=== PATIENT | female | born 1955 | race Hispanic/Latino ===

== ENCOUNTER 2021-10-10 09:37 | Emergency (ER) | payer MEDICAID ==
[~2021-10-10] VITALS: Ht 162.6 cm; Wt 72.6 kg
[~2021-10-10 09:37] MED LIST: AMLO-257 PO
[2021-10-10 10:00] LABS: BASOPHILS % (AUTO) 0.4 % (0.0-5.0); EOSINOPHILS % (AUTO) 1.3 % (0.0-8.0); HEMATOCRIT 41.2 % (36-48); LYMPHOCYTES % (AUTO) 21.4 % (21.0-51.0); MEAN CORPUSCULAR HEMOGLOBIN 29.8 pg (27.0-33.0); MEAN CORPUSCULAR VOLUME 90.4 fL (79-99); MONOCYTES % (AUTO) 10.4 % (3.0-13.0); NEUTROPHILS % (AUTO) 66.3 % (40.0-77.0); PLATELET COUNT (AUTO) 120 K/uL (130-400); RED BLOOD CELL COUNT(AUTO) 4.56 MIL/uL (4.00-5.50); RED CELL DISTRIBUTION WIDTH 13.9 % (11.0-15.5); WHITE BLOOD COUNT (AUTO) 5.4 K/uL (4.8-10.8)
[2021-10-10] MEDS ORDERED: ASPIRIN 81MG CHEW TAB ONE (10:14)
[2021-10-10] MEDS ORDERED: NITROGLYCERIN 1GM OINT 1 INCH/1GM TD ONE (10:15)
[2021-10-10 10:21] LABS: CREATININE 0.5 mg/dL (0.5-1.5); POTASSIUM 3.8 mmol/L (3.5-5.1)
[2021-10-10 10:26] LABS: ALBUMIN 3.3 g/dL (3.5-5.0); BILIRUBIN,TOTAL 0.5 mg/dL (0.2-1.0)
[2021-10-10 10:48] LABS: APPEARANCE,URINE Clear (CLEAR); BILIRUBIN,URINE Negative (NEGATIVE); COLOR,URINE Yellow (YELLOW); GLUCOSE, URINE (UA) >=1000 mg/dL (NEGATIVE); KETONES,URINE Negative (NEGATIVE); LEUKOCYTE ESTERASE ,URINE Negative (NEGATIVE); NITRATE,URINE Negative (NEGATIVE); OCCULT BLOOD,URINE Negative (NEGATIVE); PH,URINE 5.5 (5.0-8.0); PROTEIN,URINE POS 2+ mg/dL (NEGATIVE)
[2021-10-10 11:28] LABS: BACTERIA,URINE Rare /HPF (None Seen); RBC,URINE 0-1 /HPF (0-1); SQUAMOUS EPITHELIAL CELL,UR Rare /HPF (0-2)
[2021-10-10 12:22] VITALS: BP 138/73
== END 2021-10-10 12:39 | disposition left against medical advice (07) ==
LOC: EDH 09:37
DX: I20.0 Unstable angina (principal); R07.89 Other chest pain; Z20.822 Contact with and (suspected) exposure to COVID-19; I11.9 Hypertensive heart disease without heart failure; E11.9 Type 2 diabetes mellitus without complications; Z79.82 Long term (current) use of aspirin; Z90.49 Acquired absence of other specified parts of digestive tract
CPT/HCPCS: 36415; 71045; 80053; 81001; 83880; 84484; 85025; 87635; 87804 ×2; 93005; 99285; C9803

== ENCOUNTER 2022-06-15 07:22 | Emergency (ER) | payer MEDICAID ==
[~2022-06-15] VITALS: Ht 165.1 cm; Wt 77.1 kg
[2022-06-15] MEDS ORDERED: NAPROXEN 250 MG TAB ONE (07:47)
[2022-06-15 07:56] VITALS: BP 176/75
[2022-06-15] MEDS ORDERED: NAPROXEN 500 MG TABLET PO ONE (08:00)
[2022-06-15] MEDS ORDERED: LACTATED RINGERS 1000ML 1,000 ML IV ONE (08:00)
[2022-06-15 08:01] LABS: BASOPHILS % (AUTO) 0.4 % (0.0-5.0); EOSINOPHILS % (AUTO) 1.7 % (0.0-8.0); HEMATOCRIT 38.3 % (36-48); LYMPHOCYTES % (AUTO) 28.4 % (21.0-51.0); MEAN CORPUSCULAR HEMOGLOBIN 27.9 pg (27.0-33.0); MEAN CORPUSCULAR HGB CONC 32.6 g/dL (32.0-36.0); MEAN CORPUSCULAR VOLUME 85.5 fL (79-99); MONOCYTES % (AUTO) 8.9 % (3.0-13.0); NEUTROPHILS % (AUTO) 60.4 % (40.0-77.0); PLATELET COUNT (AUTO) 114 K/uL (130-400); RED BLOOD CELL COUNT(AUTO) 4.48 MIL/uL (4.00-5.50); RED CELL DISTRIBUTION WIDTH 14.6 % (11.0-15.5); WHITE BLOOD COUNT (AUTO) 5.4 K/uL (4.8-10.8)
[2022-06-15 08:08] LABS: APPEARANCE,URINE CLOUDY (CLEAR); BILIRUBIN,URINE NEGATIVE (NEGATIVE); COLOR,URINE YELLOW (YELLOW); GLUCOSE, URINE (UA) 500 mg/dL (NEGATIVE); KETONES,URINE NEGATIVE (NEGATIVE); LEUKOCYTE ESTERASE ,URINE 75 Leu/uL (NEGATIVE); NITRATE,URINE NEGATIVE (NEGATIVE); OCCULT BLOOD,URINE NEGATIVE (NEGATIVE); PH,URINE 5.5 (5.0-8.0); PROTEIN,URINE 100 mg/dL (NEGATIVE)
[2022-06-15 08:08] LABS: CREATININE 0.8 mg/dL (0.5-1.5); POTASSIUM 4.4 mmol/L (3.5-5.1)
[2022-06-15 08:12] LABS: ALBUMIN 3.3 g/dL (3.5-5.0); TOTAL PROTEIN, SERUM 7.2 g/dL (6.0-8.3)
[2022-06-15] MEDS ORDERED: PANTOPRAZOLE 40 MG/VIAL ONE (08:28)
[2022-06-15] MEDS ORDERED: PANTOPRAZOLE 40 MG/VIAL IVP ONE (08:30)
[2022-06-15] MEDS ORDERED: MAG/ALUM/SIMETH 30 ML UDCUP PO ONE (09:00)
[2022-06-15] MEDS ORDERED: DICYCLOMINE HCL 10 MG/5 ML ML PO ONE (09:00)
[2022-06-15] MEDS ORDERED: LIDOCAINE HCL 2% VISCOUS 15 ML UDCUP PO ONE (09:00)
[2022-06-15] MEDS ORDERED: CEPH500B PO (09:16)
[2022-06-15] MEDS ORDERED: PANT40TA55 PO (09:16)
[2022-06-15 09:19] LABS: MUCUS,URINE MOD LPF (None Seen); OTHER CASTS, URINE 2 /LPF (None Seen); SQUAMOUS EPITHELIAL CELL,UR MOD /HPF (0-2)
== END 2022-06-15 09:24 | disposition home or self-care (01) ==
LOC: EDH 07:22
DX: N39.0 Urinary tract infection, site not specified (principal); K29.70 Gastritis, unspecified, without bleeding; E11.9 Type 2 diabetes mellitus without complications; I10 Essential (primary) hypertension; Z90.49 Acquired absence of other specified parts of digestive tract; Z98.890 Other specified postprocedural states
CPT/HCPCS: 99285; 96374; 76705; 96361; 84484; 80053; 83690; 85025; 87077; 87088; 87186; 81001; 36415; 93005; J7120; S0164; C9113

== ENCOUNTER 2022-07-28 08:56 | Emergency (ER) | payer MEDICAID ==
[~2022-07-28] VITALS: Ht 165.1 cm; Wt 68.0 kg
[~2022-07-28 08:56] MED LIST changes: +CEPH500B PO; +PANT40TA55 PO
[2022-07-28] MEDS ORDERED: MORPHINE 2 MG SYG IM ONE (09:30)
[2022-07-28] MEDS ORDERED: ONDANSETRON ODT 4MG TAB SL ONE (09:30)
[2022-07-28] MEDS ORDERED: TRAM50TA4 PO (10:33)
[2022-07-28] MEDS ORDERED: NAPR-1180 PO (10:33)
[2022-07-28 10:35] VITALS: BP 162/91
== END 2022-07-28 10:43 | disposition home or self-care (01) ==
LOC: EDH 08:56
DX: S53.402A Unspecified sprain of left elbow, initial encounter (principal); R07.89 Other chest pain; I10 Essential (primary) hypertension; E11.9 Type 2 diabetes mellitus without complications; Z90.49 Acquired absence of other specified parts of digestive tract; Z98.890 Other specified postprocedural states; Z79.899 Other long term (current) drug therapy; W01.0XXA Fall on same level from slipping, tripping and stumbling without subsequent striking against object, initial encounter; Y93.89 Activity, other specified; Y92.89 Other specified places as the place of occurrence of the external cause; Y99.8 Other external cause status
CPT/HCPCS: 71101; 73080; 96372

== ENCOUNTER → 2022-08-17 | Outpatient (CLI) | payer MEDICAID ==
[~2022-08-17] MED LIST changes: +NAPR-1180 PO; +TRAM50TA4 PO
== END | disposition home or self-care (01) ==
LOC: RAH 12:20
PROVIDERS: ATTEND Family Medicine
DX: S52.135A Nondisplaced fracture of neck of left radius, initial encounter for closed fracture (principal); M79.601 Pain in right arm; M25.531 Pain in right wrist; W19.XXXA Unspecified fall, initial encounter; Y93.89 Activity, other specified; Y92.89 Other specified places as the place of occurrence of the external cause; Y99.8 Other external cause status
CPT/HCPCS: 73060; 73080; 73090; 73110

== ENCOUNTER → 2022-08-24 | Outpatient (CLI) | payer MEDICAID | END | disposition home or self-care (01) | LOC: RAH 08:45 | PROVIDERS: ATTEND Family Medicine | DX: Z12.31 Encounter for screening mammogram for malignant neoplasm of breast (principal) | CPT/HCPCS: 77067 ==

== ENCOUNTER 2022-10-03 08:18 | Emergency (ER) | payer MEDICAID ==
[~2022-10-03] VITALS: Ht 165.1 cm; Wt 71.7 kg
[2022-10-03 08:20] VITALS: BP 196/89
[2022-10-03 09:06] LABS: BASOPHILS % (AUTO) 0.3 % (0.0-5.0); EOSINOPHILS % (AUTO) 3.1 % (0.0-8.0); HEMATOCRIT 37.7 % (36-48); LYMPHOCYTES % (AUTO) 28.3 % (21.0-51.0); MEAN CORPUSCULAR HEMOGLOBIN 26.9 pg (27.0-33.0); MEAN CORPUSCULAR HGB CONC 32.4 g/dL (32.0-36.0); MONOCYTES % (AUTO) 6.5 % (3.0-13.0); NEUTROPHILS % (AUTO) 61.5 % (40.0-77.0); PLATELET COUNT (AUTO) 112 K/uL (130-400); RED BLOOD CELL COUNT(AUTO) 4.54 MIL/uL (4.00-5.50); RED CELL DISTRIBUTION WIDTH 14.6 % (11.0-15.5)
[2022-10-03 09:14] LABS: CREATININE 0.6 mg/dL (0.5-1.5); POTASSIUM 3.3 mmol/L (3.5-5.1)
[2022-10-03 09:19] LABS: ALBUMIN 3.2 g/dL (3.5-5.0); TOTAL PROTEIN, SERUM 7.1 g/dL (6.0-8.3)
[2022-10-03 09:23] LABS: APPEARANCE,URINE CLOUDY (CLEAR); BILIRUBIN,URINE NEGATIVE (NEGATIVE); COLOR,URINE YELLOW (YELLOW); GLUCOSE, URINE (UA) 30 mg/dL (NEGATIVE); KETONES,URINE NEGATIVE (NEGATIVE); LEUKOCYTE ESTERASE ,URINE 500 Leu/uL (NEGATIVE); NITRATE,URINE NEGATIVE (NEGATIVE); OCCULT BLOOD,URINE SMALL (NEGATIVE); PROTEIN,URINE 300 mg/dL (NEGATIVE)
[2022-10-03 09:29] LABS: BACTERIA,URINE MOD /HPF (None Seen); MUCUS,URINE MOD LPF (None Seen); SQUAMOUS EPITHELIAL CELL,UR MOD /HPF (0-2); WBC,URINE 51-100 /HPF (0-1)
[2022-10-03] MEDS ORDERED: ONDANSETRON 4MG INJ IVP ONE (09:30)
[2022-10-03] MEDS ORDERED: ACETAMINOPHEN 500 MG TABLET PO ONE (09:30)
[2022-10-03] MEDS ORDERED: 0.9%NACL 1000ML 1,000 ML IV ONE (09:30)
[2022-10-03] MEDS ORDERED: BENZONATATE 100 MG CAPSULE PO SCH (09:30)
[2022-10-03] MEDS ORDERED: ONDA4TAB10 PO (10:52)
[2022-10-03] MEDS ORDERED: AZIT500T2 PO (10:52)
[2022-10-03] MEDS ORDERED: ACET-66 PO (10:52)
[2022-10-03] MEDS ORDERED: BENZ-39 PO (10:52)
== END 2022-10-03 11:13 | disposition home or self-care (01) ==
LOC: EDH 08:18
DX: J40 Bronchitis, not specified as acute or chronic (principal); E11.9 Type 2 diabetes mellitus without complications; I10 Essential (primary) hypertension; Z79.899 Other long term (current) drug therapy; Z20.822 Contact with and (suspected) exposure to COVID-19
CPT/HCPCS: 99285; 96374; 71045; 87635; 84484; 80053; 85025; 87077; 87088; 87186; 87880; 87804 ×2; 81001; 36415; 93005; C9803; J7030; J2405

== ENCOUNTER → 2023-01-31 | Outpatient (CLI) | payer MEDICAID ==
[~2023-01-31] MED LIST changes: +AEC81 PO; +ATOR40TA69 PO; -CEPH500B PO; +Docusate Sodium 100 Mg Cap PO; +FURO20TA6 PO; +LISI5TAB21 PO; +METO50 PO; -NAPR-1180 PO; -PANT40TA55 PO; +POTA-364 PO; -TRAM50TA4 PO
[2023-01-31 17:08] LABS: CREATININE 0.7 mg/dL (0.5-1.5); POTASSIUM 3.8 mmol/L (3.5-5.1)
== END | disposition home or self-care (01) ==
LOC: LAB 16:03
PROVIDERS: ATTEND Internal Medicine Cardiovascular Disease
DX: I25.5 Ischemic cardiomyopathy (principal); I50.42 Chronic combined systolic (congestive) and diastolic (congestive) heart failure
CPT/HCPCS: 36415; 80048; 83880

== ENCOUNTER → 2023-02-23 | Outpatient (CLI) | payer MEDICAID ==
[2023-02-23 15:30] LABS: CREATININE 0.7 mg/dL (0.5-1.5); POTASSIUM 3.8 mmol/L (3.5-5.1)
== END | disposition home or self-care (01) ==
LOC: LAB 14:34
PROVIDERS: ATTEND Internal Medicine Cardiovascular Disease
DX: I25.5 Ischemic cardiomyopathy (principal); I50.42 Chronic combined systolic (congestive) and diastolic (congestive) heart failure
CPT/HCPCS: 36415; 80048

== ENCOUNTER → 2023-04-24 | Outpatient (CLI) | payer MEDICAID | END | disposition home or self-care (01) | LOC: OIH 11:08 | PROVIDERS: ATTEND Family Medicine | DX: J98.11 Atelectasis (principal); I70.0 Atherosclerosis of aorta; J06.9 Acute upper respiratory infection, unspecified; I20.0 Unstable angina; M47.815 Spondylosis without myelopathy or radiculopathy, thoracolumbar region | CPT/HCPCS: 71046 ==

== ENCOUNTER 2023-11-27 16:16 | Emergency (ER) | payer OTHER, MEDICARE ==
[~2023-11-27] VITALS: Ht 162.6 cm; Wt 74.8 kg
[2023-11-27] MEDS: TRIAMCINOLONE ACETONIDE 40 MG/ML 1ML VIAL IM ONE (17:21)
[2023-11-27] MEDS: ORPHENADRINE CITRATE 30 MG/ML ML IM ONE (17:21)
[2023-11-27] MEDS ORDERED: PRED10TA23 PO (18:24)
[2023-11-27] MEDS ORDERED: CYCL7.5T27 PO (18:24)
[2023-11-27 18:51] VITALS: BP 162/88; PULSE 84; RESP 18; O2SAT 98
== END 2023-11-27 18:53 | disposition home or self-care (01) ==
LOC: EDH 16:16
DX: M54.40 Lumbago with sciatica, unspecified side (principal); I10 Essential (primary) hypertension; E11.9 Type 2 diabetes mellitus without complications; E78.00 Pure hypercholesterolemia, unspecified; Z79.82 Long term (current) use of aspirin; Z79.899 Other long term (current) drug therapy; Z98.890 Other specified postprocedural states
CPT/HCPCS: 99284; 72100; 96372 ×2; J3301; J2360

== ENCOUNTER 2023-12-12 06:51 | Emergency (ER) | payer OTHER, MEDICARE ==
[~2023-12-12] VITALS: Ht 162.6 cm; Wt 79.8 kg
[~2023-12-12 06:51] MED LIST changes: +CYCL7.5T27 PO; +PRED10TA23 PO
[2023-12-12 07:30] LABS: RAPID GROUP A STREP negative (NEGATIVE)
[2023-12-12 07:35] LABS: SARS-CoV-2, RNA, NAAT NEGATIVE SARS CoV-2 (NEGATIVE)
[2023-12-12 07:40] LABS: INFLUENZA TYPE A Negative For Type A (NEGATIVE); INFLUENZA TYPE B Negative For Type B (NEGATIVE)
[2023-12-12] MEDS ORDERED: LORA10TA7 PO (07:56)
[2023-12-12] MEDS ORDERED: FLUT16H NASAL (07:56)
[2023-12-12] MEDS ORDERED: AMOX1TAB16 PO (07:56)
[2023-12-12 07:59] VITALS: BP 156/48; PULSE 60; RESP 17; O2SAT 96
[2023-12-12] MEDS: DEXAMETHASONE SOD PHOSPHATE 4 MG/ML 1ML VIAL IM STA (08:07)
== END 2023-12-12 09:19 | disposition home or self-care (01) ==
LOC: EDH 06:51
DX: J32.9 Chronic sinusitis, unspecified (principal); I10 Essential (primary) hypertension; E11.9 Type 2 diabetes mellitus without complications; Z79.899 Other long term (current) drug therapy; Z20.822 Contact with and (suspected) exposure to COVID-19
CPT/HCPCS: 99283; 87635; 87880; 87804 ×2; 96372; J1100

== ENCOUNTER → 2024-05-28 | Outpatient (CLI) | payer OTHER, MEDICARE ==
[~2024-05-28] MED LIST changes: -AMLO-257 PO; +AMLO5TAB4 PO; +ASPI-1005 PO; +CLOP-31 PO; -CYCL7.5T27 PO; -Docusate Sodium 100 Mg Cap PO; +HYDR25 PO; +ISOS20TA10 PO; +LEVEMIR; +LISI20TA24 PO; -LISI5TAB21 PO; -METO50 PO; +METO50TA9 PO; -PRED10TA23 PO
--- NOTE | 2024-05-28 14:18 | HMCIMG ---
US SOFT TISSUE GROIN REASON: NONTRAUMATICHEMATOMA COMPARISON: None TECHNIQUE: By right groin ultrasound was performed. FINDINGS: There is a small focal fluid collection in the right groin the 10 x 12 mm. This may represent hematoma. Exam is otherwise unremarkable. IMPRESSION: 1. Probable small 1.2 cm hematoma right inguinal region.
== END | disposition home or self-care (01) ==
LOC: RAH 12:07
PROVIDERS: ATTEND Internal Medicine Cardiovascular Disease
DX: R10.31 Right lower quadrant pain (principal); M79.81 Nontraumatic hematoma of soft tissue
CPT/HCPCS: 76882

== ENCOUNTER 2024-07-03 07:42 | Emergency (ER) | payer OTHER, MEDICARE ==
[~2024-07-03] VITALS: Ht 162.6 cm; Wt 74.8 kg
--- NOTE | 2024-07-03 08:01 | EKG ---
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1955 Requested By: SUNITHA MORRISON Order Number: [id number] Reading MD: Carlos Friedman Measurements Intervals [place] Rate: 106 P: 63 [place]: 157 QRS: -38 QRSD: 110 T: 104 QT: 355 QTc: 471 Interpretive Statements Sinus tachycardia Probable left atrial enlargement LVH with secondary repolarization abnormality Anterior ST elevation, probably due to LVH Compared to ECG 05/22/2024 17:56:12 Sinus rhythm no longer present Left bundle-branch block no longer present ST (T wave) deviation still present Electronically Signed On 07-04-2024 12:17:48 SUCCESS COACH by Carlos Friedman Please click the below link to view image of tracing.
[2024-07-03] MEDS: 0.9%NACL 1000ML 1,000 ML IV ONE (08:06)
--- NOTE | 2024-07-03 08:10 | ERN ---
ED Note History of Present Illness Stated Complaint: SOB Chief Complaint: Shortness of Breath Time Seen by MD: 07:46 Dictation: This is a case of 68-year-old female with a past medical history of hypertension, CAD s/p open heart surgery in 2022, diabetes mellitus type 2 who presented to the ER with the complaints of fever, cough, shortness of breath since 2 days. She states that she has started experiencing symptoms like fever, chills, nasal congestion, sore throat, difficulty in swallowing, shortness of breath since 2 days. She denies headache, dizziness, nausea, vomiting, chest pain, abdominal pain, diarrhea/constipation. She also admits to burning sensation when urinating. She did not take her blood pressure medications today. Allergies: Coded Allergies: No Known Drug Allergies (Unverified Allergy, Unknown, 02/01/16) Home Meds Active Scripts Nitrofurantoin/Nitrofuran Mac (Macrobid) 100 Mg Cap, 1 CAP PO BID for 7 Days, #14 CAP 0 Refills Prov:MARNI SAM MD 07/03/24 Oseltamivir Phosphate (Tamiflu) 75 Mg Cap, 1 CAP PO BID for 5 Days, #10 CAP 0 Refills Prov:MARNI ASM MD 07/03/24 Isosorbide Dinitrate (Isordil) 20 Mg Tablet, 20 MG PO BID, #60 TAB 0 Refills Prov:ROC PALACIOS MD 05/25/24 Hydralazine HCl (Apresoline) 25 Mg Tab, 25 MG PO QID, #120 TAB 0 Refills Prov:ROC PALACIOS MD 05/25/24 Amlodipine Besylate (Norvasc 5Mg Tab) 5 Mg Tablet, 10 MG PO DAILY, #30 TAB 0 Ref ills Prov:ROC PALACIOS MD 05/25/24 Furosemide (Lasix 20Mg Tab) 20 Mg Tablet, 20 MG PO DAILY, #30 TAB Prov:IRENE JOHN 05/25/24 Lisinopril (Lisinopril) 20 Mg Tablet, 20 MG PO Q12H, #60 TAB Prov:IRENE JOHN 05/24/24 Metoprolol Succinate (Toprol Xl) 50 Mg Tab.er.24h, 50 MG PO BID, #60 TAB Prov:IRENE JOHN Mary MD 05/24/24 Clopidogrel Bisulfate (Plavix) 75 Mg Tablet, 75 MG PO DAILY, #90 TAB Prov:IRENE JOHN Mary MD 05/24/24 Atorvastatin Calcium (LIPITOR) 40 Mg Tablet, 40 MG PO DAILY, #90 TAB Prov:JOHN,IRENE R MD 05/24/24 Aspirin (ASPIRIN 81MG CHEW TAB) 81 Mg Tab.chew, 81 MG PO DAILY, #90 TAB.CHEW Prov:IRENE JOHN Mary MD 05/24/24 Potassium Chloride (Potassium Chloride) 20 Meq Tablet.er, 20 MEQ PO DAILY, #30 TAB 0 Refills Prov:LASHANDA NIÑO [facility] 11/29/22 Aspirin (ASPIRIN 81 MG ECTAB) 81 Mg Ectab, 81 MG PO DAILY, #30 TAB.EC 0 Refills Prov:LASHANDA NIÑO [facility] 11/29/22 Reported Medications [Levemir] No Conflict Check 05/24/24 Past Medical History Past Medical History: Diabetes-Type II, Heart Disease, Hypertension Additional Past Medical Hx: PNEUMONIA Surgical History: Other Surgical History Other: OPEN HEART SX (10/2022) Social History: Other Review of System Dictation ROS Constitutional: No appetite loss, fevers, chills , No night sweats, No weakness, fatigue Eye: No vision change, No redness, pain or discharge ENT: No hearing loss, ear pain or discharge, No nose bleeds, sore throat, Neck: No swelling. pain or stiffness Respiratory: Productive cough, shortness of breath, wheezing Cardiovascular: No chest pain,, palpitations, dyspnea, No edema Gastrointestinal: No abdominal pain, No nausea, vomiting, No diarrhea, constipation Genitourinary: painful urination, No blood in urine, No urinary incontinence, No frequency or urgency Musculoskeletal: No joint pain, muscle pain, swelling or stiffness Neurological: No numbness, tingling, No weakness, tremors or seizures Psychiatric: : No depression, No anxiety, No sleep disturbance, No Memory changes A 13-point Review of Systems was assessed, all of which are negative except for HPI or as indicated above. Initial Vital Sign VS Vital Signs Date Time Temp Pulse Resp B/P (MAP) Pulse Ox O2 Delivery O2 Flow Rate FiO2 1/2/25 07:43 99.9 111 20 212/106 94 07/03/24 08:20 Room Air* 0 21 Physical Exam Dictation General: Alert & Oriented, No acute distress. EENT: No conjunctival redness or discharge noted Tympanic membranes are clear, Normal hearing, Oral mucosa is moist, No pharyngeal erythema, nasal congestion , No oral lesions. Neck: Non-tender, No jugular vein distention, No lymphadenopathy, No thyromegaly, Supple. Respiratory: Mild bilateral crackles auscultation, Respirations are non- labored, Breath sounds are equal, No chest wall tenderness, _. Cardiovascular: Tachycardia, Normal rhythm, No murmur, Good pulses equal in all extremities, Normal peripheral perfusion, No edema. Gastrointestinal: Soft, Non-tender, Non-distended, Normal bowel sounds, No organomegaly Musculoskeletal: Normal range of motion, Normal strength, No tenderness, No swelling, No deformity, Normal gait. Integumentary: Warm, Dry, [place], Intact, No pallor, No rash. Neurologic: Alert, Oriented x4, Normal sensory, No focal defects Psychiatric: Cooperative, Appropriate mood & affect, Normal judgement, Non- suicidal. Results (Laboratory/Radiology) Laboratory/Radiology Laboratory Tests Test 07/03/24 07:58 07/03/24 08:16 07/03/24 09:08 Influenza Type A Antigen Positive For Type A Influenza Type B Antigen Negative For Type B SARS-CoV-2, RNA, NAAT NEGATIVE SARS CoV-2 Group A Streptococcus Rapid negative (NEGATIVE) White Blood Count 5.7 K/uL (4.8-10.8) Red Blood Count 4.69 MIL/uL (4.00-5.50) Hemoglobin 14.1 g/dL (12.0-16.0) Hematocrit 41.6 % (36-48) Mean Corpuscular Volume 88.7 fL (79-99) Mean Corpuscular Hemoglobin 30.1 pg (27.0-33.0) Mean Corpuscular Hemoglobin Concent 33.9 g/dL (32.0-36.0) Red Cell Distribution Width 13.2 % (11.0-15.5) Platelet Count 98 K/uL (130-400) L Mean Platelet Volume 9.2 fL (7.5-10.5) Immature Granulocyte % (Auto) 0.4 % (0-1) Neutrophils (%) (Auto) 69.6 % (40.0-77.0) Lymphocytes (%) (Auto) 17.2 % (21.0-51.0) L Monocytes (%) (Auto) 11.7 % (3.0-13.0) Eosinophils (%) (Auto) 0.9 % (0.0-8.0) Basophils (%) (Auto) 0.2 % (0.0-5.0) Neutrophils # (Auto) 4.0 K/uL (1.8-7.7) Lymphocytes # (Auto) 1.0 K/uL (1.0-4.8) Monocytes # (Auto) 0.7 K/uL (0.1-1.0) Eosinophils # (Auto) 0.05 K/uL (0.00-0.70) Basophils # (Auto) 0.01 K/uL (0.00-0.20) Absolute Immature Granulocyte (auto 0.02 K/uL (0-1) Nucleated Red Blood Cells 0.0 % (0.0-0.19) Sodium Level 140 mmol/L (136-145) Potassium Level 3.8 mmol/L (3.5-5.1) Chloride Level 101 mmol/L (101-111) Carbon Dioxide Level 27 mmol/L (21-32) Blood Urea Nitrogen 9 mg/dL (7-18) Creatinine 0.5 mg/dL (0.5-1.0) Glomerular Filtration Rate Calc 103 mL/min (>90) Random Glucose 208 mg/dL (70-105) H Lactic Acid Level 1.6 mmol/L (0.8-2.5) Total Calcium 8.8 mg/dL (8.5-10.1) Total Creatine Kinase 75 U/L (21-232) # Troponin I High Sensitivity 21.2 ng/L (4-50) B-Type Natriuretic Peptide 319 pg/mL (0-100) H Urine Color YELLOW (YELLOW) Urine Appearance CLOUDY (CLEAR) H Urine pH 6.5 (5.0-8.0) Urine Specific Reed 1.014 (1.001-1.031) Urine Protein 600 mg/dL (NEGATIVE) H Urine Glucose (UA) >=1000 mg/dL (NEGATIVE) H Urine Ketones 40 mg/dL (NEGATIVE) H Urine Occult Blood SMALL (NEGATIVE) H Urine Nitrate NEGATIVE (NEGATIVE) Urine Bilirubin NEGATIVE mg/dL (NEGATIVE) Urine Urobilinogen 0.2 mg/dL (0.2-1.0) Urine Leukocyte Esterase 500 Artemio/uL (NEGATIVE) H Urine RBC 2-5 /HPF (0-1) H Urine WBC TNTC /HPF (0-1) H Urine Squamous Epithelial Cells RARE /HPF (0-2) Urine Bacteria MOD /HPF (None Seen) Urine Hyaline Casts 0-1 /LPF (0-1 /LPF) EKG Comment: ORDERING PHYSICIAN: SUNITHA MORRISON DO PROCEDURE: EKG - 12 LEAD EKG TRACING- TECHNICAL [facility] Test Date: 2024-07-03 Test Time: 07:59:01 Pat Name: SRIKANTH WATTERS Department: [facility] Room: Gender: Female Rn Trauma: [id number] : 1955 Requested By: SUNITHA MORRISON Order Number: [id number] Reading MD: Measurements Intervals [place] Rate: 106 P: 63 [place]: 157 QRS: -38 QRSD: 110 T: 104 QT: 355 QTc: 471 Interpretive Statements Sinus tachycardia Probable left atrial enlargement LVH with secondary repolarization abnormality Anterior ST elevation, probably due to LVH X-RAY Comment: PROCEDURE: CXR1VW - CHEST 1VW CHEST 1VW REASON: cough COMPARISON: 05/25/2024 FINDINGS: Single view of the chest was obtained. Lungs are clear. Heart size is normal. There is no pulmonary vascular congestion. Mediastinum and bony thorax appear unremarkable. There is been previous median sternotomy. IMPRESSION: 1. No acute process seen in the chest. ED Course ED Course Orders Procedure Category Date Status Time Covid Rna Naat LAB 07/03/24 Complete 07:48 12 Lead Ekg Tracing- EKG 07/03/24 Complete Technical 07:48 Influenza Type A & B, LAB 07/03/24 Complete Rapid 07:48 Chest 1vw RAD 07/03/24 Resulted 07:51 0.9%Nacl 1000ml (Ns PHA 07/03/24 Complete 1000ml) 08:00 Cardiac Panel LAB 07/03/24 Complete 07:52 Cbc With Differential LAB 07/03/24 Complete 07:52 Basic Metabolic Panel LAB 07/03/24 Complete 07:52 Blood Cult RICH 07/03/24 In Process 07:52 Lactic Acid LAB 07/03/24 Complete 07:52 Rapid (Group A Strep) LAB 07/03/24 Complete 07:59 Urinalysis Profile LAB 07/03/24 Complete 08:00 B-Type Natriuretic LAB 07/03/24 Complete Peptide 08:36 Labetalol 20mg Syg PHA 07/03/24 Complete (Trandate 20mg Syg) 09:00 Acetaminophen 500mg PHA 07/03/24 Complete Tab (Tylenol 500mg T 09:30 Culture Urine RICH 07/03/24 Complete 09:51 Current Medications Medications (Trade) Dose Ordered Sig/Brett Route PRN Reason Start Time Stop Time Status Last Admin Dose Admin Acetaminophen (TYLenol 500MG TAB) 1,000 mg ONCE ONCE PO 07/03/24 09:30 07/03/24 09:31 DC 07/03/24 09:17 Labetalol HCl (TRANdate 20MG SYG) 10 mg ONCE ONCE IV 07/03/24 09:00 07/03/24 09:01 DC 07/03/24 08:53 Sodium Chloride 1,000 ml @ 0 mls/hr ONCE ONCE IV 07/03/24 08:00 07/03/24 08:01 DC 07/03/24 08:06 Vital Signs Date Time Temp Pulse Resp B/P (MAP) Pulse Ox O2 Delivery O2 Flow Rate FiO2 07/03/24 09:59 98.1 86 20 182/74 95 Room Air* 0 07/03/24 08:53 193/87 07/03/24 08:20 98.1 105 20 187/109 98 Room Air* 0 07/03/24 07:43 99.9 111 20 212/106 94 Medical Decision Making MDM MDM Potential differential diagnoses include: Influenza Strep throat COVID Pneumonia Assessment: I will order a CBC and CMP and administer medications according to the patient's complaint. Will order 1 Liter of LR for adequate hydration, and TYLENOL 1000 MG P.O.......... I will re-evaluate the patient after treatment and diagnostic exams have returned to determine whether they require further testing, can be safely discharged home, or need admission for further treatment and evaluation. Given the social determinants of health affecting care, including literacy, acce ss to medical care, prescription drug management, and [id number]-[id number]-[id number] drugs, I will ensure that treatment plans are tailored accordingly. Revaluation : Patient is alert and oriented. States that she feels better. She has tested positive for influenza A. Labs CBC, BMP are unremarkable. BNP is 314. Urinalysis positive for leukocyte esterase test indicating infection. Chest x-ray resulted in no acute findings . Disposition: Patient is being discharged home with prescriptions of Macrobid 100 mg b.i.d. for 7 days, 14 tablets Tamiflu 75 mg b.i.d. for 5 days Advised to FOLLOW UP WITH PCP WITHIN 2-3 DAYS GET PLENTY OF REST AND DRINK FLUIDS TO STAY HYDRATED COMPLETE THE TAMIFLU 5 DAY COURSE DIRECTED TAKE [id number] MEDICATIONS LIKE ACETAMINOPHEN OR IBUPROFEN FOR FEVER OR PAIN RELIEF TAKE MACROBID ANTIBIOTIC MEDICATION FOR UTI DIRECTED MONITOR FOR SYMPTOMS LIKE FEVER, CHILLS, DIFFICULTY BREATHING, CHEST PAIN, SEVERE WEAKNESS OR CONFUSION AND SEEK IMMEDIATE MEDICAL ATTENTION IN SUCH S CENARIO. DX & DISP Disposition: Discharge Departure Impression: Primary Impression: Influenza A Additional Impression: UTI (urinary tract infection) Critical Time: 30 minutes Condition: Stable Scripts Nitrofurantoin/Nitrofuran Mac (Macrobid) 100 Mg Cap 1 CAP PO BID for 7 Days, #14 CAP 0 Refills Prov: MARNI SAM MD 07/03/24 Oseltamivir Phosphate (Tamiflu) 75 Mg Cap 1 CAP PO BID for 5 Days, #10 CAP 0 Refills Prov: MARNI SAM MD 07/03/24 Referrals: JUANITA ENRIQUEZ MD (PCP) I performed a substantive portion of the visit. I have reviewed and personally made and approve the management plan that is documented in the notes by myself with CHARLENE/resident. I acknowledged full responsibility for the patient's management plan. MARNI SAM MD Jul 03, 2024 08:10 SUNITHA MORRISON DO Jul 04, 2024 07:38
[2024-07-03 08:28] LABS: BASOPHILS # (AUTO) 0.01 K/uL (0.00-0.20); BASOPHILS % (AUTO) 0.2 % (0.0-5.0); EOSINOPHILS # (AUTO) 0.05 K/uL (0.00-0.70); EOSINOPHILS % (AUTO) 0.9 % (0.0-8.0); HEMATOCRIT 41.6 % (36-48); IMMATURE GRANULOCYTE ABSOLUTE 0.02 K/uL (0-1); LYMPHOCYTES % (AUTO) 17.2 % (21.0-51.0); MEAN CORPUSCULAR HEMOGLOBIN 30.1 pg (27.0-33.0); MEAN CORPUSCULAR HGB CONC 33.9 g/dL (32.0-36.0); MEAN CORPUSCULAR VOLUME 88.7 fL (79-99); MONOCYTES # (AUTO) 0.7 K/uL (0.1-1.0); MONOCYTES % (AUTO) 11.7 % (3.0-13.0); NEUTROPHILS % (AUTO) 69.6 % (40.0-77.0); PLATELET COUNT (AUTO) 98 K/uL (130-400); RED BLOOD CELL COUNT(AUTO) 4.69 MIL/uL (4.00-5.50); RED CELL DISTRIBUTION WIDTH 13.2 % (11.0-15.5); WHITE BLOOD COUNT (AUTO) 5.7 K/uL (4.8-10.8)
[2024-07-03 08:49] LABS: CREATININE 0.5 mg/dL (0.5-1.0); POTASSIUM 3.8 mmol/L (3.5-5.1)
[2024-07-03] MEDS: LAbetaLOL 20MG SYG IV ONE (08:53)
[2024-07-03 08:57] LABS: INFLUENZA TYPE B Negative For Type B (NEGATIVE); SARS-CoV-2, RNA, NAAT NEGATIVE SARS CoV-2 (NEGATIVE)
--- NOTE | 2024-07-03 09:04 | HMCIMG ---
CHEST 1VW REASON: cough COMPARISON: 05/25/2024 FINDINGS: Single view of the chest was obtained. Lungs are clear. Heart size is normal. There is no pulmonary vascular congestion. Mediastinum and bony thorax appear unremarkable. There is been previous median sternotomy. IMPRESSION: 1. No acute process seen in the chest.
[2024-07-03 09:07] LABS: INFLUENZA TYPE A Positive For Type A (NEGATIVE)
[2024-07-03] MEDS: acetaMINOPHEN 500 MG TABLET PO ONE (09:17)
[2024-07-03 09:44] LABS: APPEARANCE,URINE CLOUDY (CLEAR); BILIRUBIN,URINE NEGATIVE (NEGATIVE); COLOR,URINE YELLOW (YELLOW); GLUCOSE, URINE (UA) >=1000 mg/dL (NEGATIVE); KETONES,URINE 40 mg/dL (NEGATIVE); LEUKOCYTE ESTERASE ,URINE 500 Leu/uL (NEGATIVE); NITRATE,URINE NEGATIVE (NEGATIVE); OCCULT BLOOD,URINE SMALL (NEGATIVE); PH,URINE 6.5 (5.0-8.0); PROTEIN,URINE 600 mg/dL (NEGATIVE); UROBILINOGEN,URINE 0.2 mg/dL (0.2-1.0)
[2024-07-03 09:50] LABS: ADD UA MICROSCOPIC YES
[2024-07-03 09:54] LABS: BACTERIA,URINE MOD /HPF (None Seen); MUCUS,URINE FEW LPF (None Seen); SQUAMOUS EPITHELIAL CELL,UR RARE /HPF (0-2); WBC,URINE TNTC /HPF (0-1)
[2024-07-03 09:56] LABS: HYALINE CASTS, URINE 0-1 /LPF (0-1 /LPF)
[2024-07-03 09:59] VITALS: BP 182/74; PULSE 86; RESP 20; TEMP 98.1; O2SAT 95
[2024-07-03] MEDS ORDERED: OSEL75 PO (10:11)
[2024-07-03] MEDS ORDERED: MACR100 PO (10:11)
--- NOTE | 2024-07-03 10:49 | NUR ---
PT STABLE AAOX4 NO C/O PAIN NOW, PT GIVEN TWO RX TO DROP OFF TO PHARMACY INTRUCTED TO START TODAY. PT IV D/C CATHETER INTACT, PT DRIVEN HOME BY KATARZYNA.
== END 2024-07-03 10:50 | disposition home or self-care (01) ==
LOC: EDH 07:42
DX: J10.1 Influenza due to other identified influenza virus with other respiratory manifestations (principal); N39.0 Urinary tract infection, site not specified; E11.9 Type 2 diabetes mellitus without complications; I11.9 Hypertensive heart disease without heart failure; Z20.822 Contact with and (suspected) exposure to COVID-19; Z79.02 Long term (current) use of antithrombotics/antiplatelets; Z79.82 Long term (current) use of aspirin; Z79.899 Other long term (current) drug therapy; Z98.890 Other specified postprocedural states
CPT/HCPCS: 99285; 96374; 71045; 87635; 96361; 82550; 84484; 80048; 83880; 85025; 87040 ×2; 87086 ×2; 87186; 87880; 87804 ×2; 83605; 81001; 36415; 93005; J7030

== ENCOUNTER → 2024-08-08 | Outpatient (CLI) | payer OTHER, MEDICARE ==
[~2024-08-08] MED LIST changes: +ACET-66 PO; +IBUP-2076 PO; +MACR100 PO; +OSEL75 PO
--- NOTE | 2024-08-08 12:06 | HMCIMG ---
Exam Type: MAMMO SCREENING BILATERAL Clinical Information: ROUTINE SCREENING Comparison: August 24, 2022 Technique: Mammogram with CAD was performed with CC and MLO projections. CAD shows no worrisome regions. FINDINGS: The breasts are heterogeneously dense, which may obscure small masses. No dominant mass or suspicious microcalcification identified. There is no nipple retraction or skin thickening. Benign-appearing calcifications are seen. CAD shows no worrisome regions. IMPRESSION: 1. No mammographic signs of malignancy. 2. Routine follow-up recommended. CATEGORY 2: BENIGN FINDINGS Note: A negative x-ray should not delay biopsy if a dominant or clinically suspicious mass is present, since 8-10% of cancers are not identified by mammography. Dense breasts may obscure an underlying neoplasm.
== END | disposition home or self-care (01) ==
LOC: RAH 11:11
PROVIDERS: ATTEND Family Medicine
DX: Z12.31 Encounter for screening mammogram for malignant neoplasm of breast (principal); R01.1 Cardiac murmur, unspecified; R92.333 Mammographic heterogeneous density, bilateral breasts
CPT/HCPCS: 77067

== ENCOUNTER 2024-08-09 08:26 | Emergency (ER) | payer OTHER, MEDICARE ==
[~2024-08-09] VITALS: Ht 162.6 cm; Wt 77.1 kg
[~2024-08-09 08:26] MED LIST changes: -ACET-66 PO; -IBUP-2076 PO
--- NOTE | 2024-08-09 09:02 | ERN ---
ED Note History of Present Illness Stated Complaint: LEG PAIN Chief Complaint: Lower Extremity Pain/Injury Time Seen by MD: 08:28 Dictation: 68-year-old female with a past medical history of diabetes, hypertension, CAD, status post CABG who presents to the ER complaining of lower back pain radiating to the right leg. Stated that she has chronic back pain but has getting worse in the last 24 hours, pain is not relieved with medication. She denies fall Allergies: Coded Allergies: No Known Drug Allergies (Unverified Allergy, Unknown, 02/01/16) Home Meds Active Scripts Nitrofurantoin/Nitrofuran Mac (Macrobid) 100 Mg Cap, 1 CAP PO BID for 7 Days, #14 CAP 0 Refills Prov:MARNI SAM MD 07/03/24 Oseltamivir Phosphate (Tamiflu) 75 Mg Cap, 1 CAP PO BID for 5 Days, #10 CAP 0 Refills Prov:MARNI SAM MD 07/03/24 Isosorbide Dinitrate (Isordil) 20 Mg Tablet, 20 MG PO BID, #60 TAB 0 Refills Prov:ROC PALACIOS MD 05/25/24 Hydralazine HCl (Apresoline) 25 Mg Tab, 25 MG PO QID, #120 TAB 0 Refills Prov:ROC PALACIOS MD 05/25/24 Amlodipine Besylate (Norvasc 5Mg Tab) 5 Mg Tablet, 10 MG PO DAILY, #30 TAB 0 Refills Prov:ROC PALACIOS MD 05/25/24 Furosemide (Lasix 20Mg Tab) 20 Mg Tablet, 20 MG PO DAILY, #30 TAB Prov:IRENE JOHN 05/25/24 Lisinopril (Lisinopril) 20 Mg Tablet, 20 MG PO Q12H, #60 TAB Prov:IRENE JOHN 05/24/24 Metoprolol Succinate (Toprol Xl) 50 Mg Tab.er.24h, 50 MG PO BID, #60 TAB Prov:IRENE JOHN 05/24/24 Clopidogrel Bisulfate (Plavix) 75 Mg Tablet, 75 MG PO DAILY, #90 TAB Prov:IRENE JOHN 11/23/24 Atorvastatin Calcium (LIPITOR) 40 Mg Tablet, 40 MG PO DAILY, #90 TAB Prov:IRENE JOHN Mary MINA 05/24/24 Aspirin (ASPIRIN 81MG CHEW TAB) 81 Mg Tab.chew, 81 MG PO DAILY, #90 TAB.CHEW Prov:IRENE JOHN Mary MINA 05/24/24 Potassium Chloride (Potassium Chloride) 20 Meq Tablet.er, 20 MEQ PO DAILY, #30 TAB 0 Refills Prov:LASHANDA NIÑO [employer] 11/29/22 Aspirin (ASPIRIN 81 MG ECTAB) 81 Mg Ectab, 81 MG PO DAILY, #30 TAB.EC 0 Refills Prov:LASHANDA NIÑO [facility] 11/29/22 Reported Medications [Levemir] No Conflict Check 05/24/24 Past Medical History Past Medical History: CAD, Diabetes-Type II, Hypertension Additional Past Medical Hx: PNEUMONIA Surgical History: CABG, Surgical History Other: OPEN HEART SX (10/2022) Social History: Other Review of System Dictation NEGATIVE EXCEPT PER HPI Constitutional: Negative for fever,chills, and weight loss Eyes: Negative for injury, pain,redness, and discharge ENT: Negative for injury,pain or swelling Cardiovascular: denies chest pain, palpitations, and edema Respiratory: Negative for shortness of breath, cough, and wheezing, Abdomen/GI: Negative for abdominal pain, nausea, vomiting, diarrhea, and constipation Back: Negative for injury and pain : Negative for injury, bleeding and discharge MS/Extremity: Back pain radiating to the right lower extremity. Skin: Negative for rash, and discoloration Neuro: Negative for headache, weakness, numbness, tingling, and seizure Psych: Negative for suicide ideation, homicidal ideation, and hallucinations Initial Vital Sign VS Vital Signs Date Time Temp Pulse Resp B/P (MAP) Pulse Ox O2 Delivery O2 Flow Rate FiO2 08/09/24 08:28 98.2 72 18 209/75 100 Room Air 0 08/09/24 08:36 21 Physical Exam Dictation General: awake, alert, NAD Head/Face: Normocephalic, atraumatic Eyes: PERRL, EOMI, vision at baseline ENT: oral cavity clear, TMs clear, no signs of infection Neck: Trachea midline, supple, no nuchal rigidity Cardiovascular: RRR, normal S1/S2, No MRGs, no JVD Respiratory: CTAB, no respiratory distress, No rales or wheezes Abdomen: Soft , no tender Skin: Warm, dry, normal turgor, no rash MS/Extremity: Pulses equal, no cyanosis, neurovascular intact, FROM Neuro: COAx4, GCS 15, strength 5/5, CN 2-12 intact, normal cerebellar exam, normal gait, Psych: Normal behavior, mood, and affect normal Results (Laboratory/Radiology) Laboratory/Radiology Laboratory Tests Test 08/09/24 09:33 Sodium Level 139 mmol/L (136-145) Potassium Level 4.0 mmol/L (3.5-5.1) Chloride Level 103 mmol/L (101-111) Carbon Dioxide Level 29 mmol/L (21-32) Blood Urea Nitrogen 30 mg/dL (7-18) H Creatinine 0.8 mg/dL (0.5-1.0) Glomerular Filtration Rate Calc 81 mL/min (>90) Random Glucose 418 mg/dL (70-105) *H Total Calcium 8.7 mg/dL (8.5-10.1) ED Course ED Course Orders Procedure Category Date Status Time Hydralazine 20mg Inj PHA 08/09/24 Complete (Apresoline 20mg In 09:00 Morphine 2mg Syg PHA 08/09/24 Complete (Morphine 2mg Syg) 09:00 Ct Lumbar Spine W/O CT 08/09/24 Resulted Contrast 08:54 Basic Metabolic Panel LAB 08/09/24 Complete 09:03 Cyclobenzaprine Hcl PHA 08/09/24 Complete (Cyclobenzaprine Hcl 09:30 Insulin Regular, PHA 08/09/24 In Process Human 3ml (Humulin R 11:30 0.9% Nacl 500ml PHA 08/09/24 In Process Iv.Soln (Ns 500ml 11:30 Current Medications Medications (Trade) Dose Ordered Sig/Brett Route PRN Reason Start Time Stop Time Status Last Admin Dose Admin Cyclobenzaprine HCl (Cyclobenzaprine HCl) 5 mg ONCE ONCE PO 08/09/24 09:30 08/09/24 09:31 DC 08/09/24 09:12 Hydralazine HCl (APRESOLine 20MG INJ) 10 mg ONCE ONCE IV 08/09/24 09:00 08/09/24 09:09 DC 08/09/24 09:13 Insulin Human Regular (humuLIN R 100 UNIT/ML 3ML) 8 unit ONCE ONCE IV 08/09/24 11:30 08/09/24 11:31 Morphine Sulfate (morPHINE 2MG SYG) 2 mg ONCE ONCE IVP 08/09/24 09:00 08/09/24 09:09 DC 08/09/24 09:13 Sodium Chloride 500 ml @ 0 mls/hr ONCE ONCE IV 08/09/24 11:30 08/09/24 11:31 Vital Signs Date Time Temp Pulse Resp B/P (MAP) Pulse Ox O2 Delivery O2 Flow Rate FiO2 08/09/24 09:58 61 18 190/56 97 Room Air* 0 21 08/09/24 08:36 98.2 72 18 209/75 100 Room Air* 0 21 08/09/24 08:28 98.2 72 18 209/75 100 Room Air 0 Medical Decision Making MDM 68-year-old female with a past medical history of diabetes, hypertension, CAD, CABG, hypertension. Presented to the ER complaining of severe back pain radiating to right lower extremity. Initial vital signs was remarkable for systolic blood pressure 237 in the mo nitor. Patient states that she took pain medication at home but she has not Take her BP medication earlier this morning. MDM : Back pain Herniated disc Sciatic pain Uncontrolled blood pressure Orders: Pain medication morphine [address] Hydralazine 10 mg IV Laboratory workup CBC, BNP due to multiple comorbidities as well elevated blood pressure. Glucose level was above 400, insulin IV also NS fluids ordered but patient refused. Blood pressure improved the after hydralazine given. Systolic 145/diastolic is in the 70s Patient stated that she have to go she now wants to get a insulin or fluids at moment. Patient will leave against medical advice. DX & DISP Disposition: AMA Departure Impression: Primary Impression: Back pain Additional Impressions: Lumbar herniated disc, Hyperglycemia, Hypertension, Uncontrolled hypertension Condition: Stable Scripts Ibuprofen (Ibuprofen) 400 Mg Tablet 1 TAB PO TID for pain or fever for 10 Days, #30 TAB 0 Refills Prov: MICHELLE MOSER MD 08/09/24 Acetaminophen (Tylenol) 500 Mg Tab 1 TAB PO Q6HPRN PRN for pain or fever for 15 Days, #60 TAB 0 Refills Prov: MICHELLE MOSER MD 08/09/24 Referrals: JUANITA ENRIQUEZ MD (PCP) MICHELLE MOSER MD Aug 09, 2024 09:02
[2024-08-09] MEDS: CYCLOBENZAPRINE HCL 10 MG TABLET PO ONE (09:12)
[2024-08-09] MEDS: hydrALAZine 20MG/ML VIAL IV ONE (09:13)
[2024-08-09] MEDS: morPHINE 2 MG SYG IVP ONE (09:13)
--- NOTE | 2024-08-09 09:49 | HMCIMG ---
CT LUMBAR SPINE WITHOUT CONTRAST INDICATION: Back pain TECHNIQUE: Noncontrast helical CT of the lumbar spine obtained at 2 mm slice thickness with reconstructions in the coronal and sagittal planes. CT was performed with one or more of the following dose reduction techniques: Automated exposure control, adjustment of the mA and/or kV according to patient size, or use of iterative reconstruction technique. COMPARISON: None FINDINGS: Normal lordosis is maintained. Vertebral bodies are normal in height, without evidence for fracture or compression deformity. No evidence for subluxation. Multilevel mild anterior endplate osteophytic spurring. Additional specific findings are as follows: T12-L1: No significant disc protrusion/extrusion or moderate or high-grade neuroforaminal narrowing or central canal stenosis. No significant facet disease. L1-L2: No significant disc protrusion/extrusion or moderate or high-grade neuroforaminal narrowing or central canal stenosis. Nominal bilateral facet disease. L2-L3 and L3-L4: Extremely shallow posterior disc displacement without any significant neuroforaminal narrowing or central canal stenosis. Mild bilateral facet disease. L4-L5: Extremely shallow posterior disc displacement with larger right and left foraminal extension, but no significant neuroforaminal narrowing or central canal stenosis. Moderate hypertrophic bilateral facet disease. L5-S1:Broad-based posterior disc protrusion/extrusion, including mild right and left foraminal extension with secondary mild bilateral neuroforaminal narrowing, but no significant central canal stenosis. Moderate bilateral facet disease. The sacroiliac joints appear normal. The paravertebral soft tissues appear normal. Mild calcific plaque is noted along the abdominal aortic and iliac vessel alejo without aneurysmal dilation. IMPRESSION: Broad-based posterior disc protrusion/extrusion, including mild right and left foraminal extension at the L5-S1 level with secondary mild bilateral neuroforaminal narrowing, but no significant central canal stenosis. Level by level analysis, additional minor degenerative changes, and pertinent negatives as reported.
[2024-08-09 09:52] LABS: CREATININE 0.8 mg/dL (0.5-1.0)
[2024-08-09 11:10] VITALS: BP 145/79; PULSE 68; RESP 18; TEMP 97.2; O2SAT 99
[2024-08-09] MEDS ORDERED: ACET-66 PO (11:23)
[2024-08-09] MEDS ORDERED: IBUP-2076 PO (11:23)
[2024-08-09] MEDS: INSULIN humuLIN R 100 UNIT/ML 3ML IV ONE (11:25)
[2024-08-09] MEDS: 0.9% NACL 500ML IV.SOLN 500 ML IV ONE (11:26)
--- NOTE | 2024-08-09 11:27 | NUR ---
PT REFUSED INSULIN AND IVFs, STATED THAT SHE HAS TO LEAVE, AMA FORM SIGNED. MADE AWRE
== END 2024-08-09 11:39 | disposition left against medical advice (07) ==
LOC: EDH 08:26
DX: M51.26 Other intervertebral disc displacement, lumbar region (principal); E11.65 Type 2 diabetes mellitus with hyperglycemia; I10 Essential (primary) hypertension; I25.10 Atherosclerotic heart disease of native coronary artery without angina pectoris; Z79.02 Long term (current) use of antithrombotics/antiplatelets; Z79.82 Long term (current) use of aspirin; Z79.899 Other long term (current) drug therapy; Z95.1 Presence of aortocoronary bypass graft
CPT/HCPCS: 99285; 96374; 72131; 96375; 80048; 36415; J2270; J0360

== ENCOUNTER → 2024-09-04 | Outpatient (CLI) | payer OTHER, MEDICARE ==
[~2024-09-04] MED LIST changes: +ACET-66 PO; +IBUP-2076 PO
--- NOTE | 2024-09-07 13:32 | HMCSR ---
APPROVED REPORT EXAM: Two-dimensional and M-mode echocardiogram with Doppler and color Doppler. INDICATION Murmur 2D Dimensions RVDd3.6 cmLVEF(%)41.0 (>50%)LVED Vol(simp.)153.0 mL IVSd1.0 (0.7-1.1cm)FS(%)20 %LVES Vol(simp.)92.0 mL LVDd6.0 (3.8-5.6cm)Ao Root(2D)3.0 (2.0-3.7cm)LVEF(%, simp.)40 % PWd0.9 (0.7-1.1cm)LVOT diam2.2 (1.8-2.4cm)LA ESV INDEX (BP)45.76 mL/m2 LVDs4.8 (2.5-4.0cm)IVC diam1.1 cm Aortic Valve AoV Vmax1.5 m/Kimberli Peak GR9.5 mmHgLVOT Vmax0.8 m/s AoV VTI0.4 mAo Mean GR5.0 mmHgLVOT VTI0.20 m YSABEL (VMAX)2.0 cm2Al P1/2T539 msAVA (VTI) 2.0 cm2 Mitral Valve MV E Vmax51.0 cm/sDECEL Cmxv034 ms MV A Fygt984.6 cm/sP 1/2 T97 ms E/A ratio0.5MVA (PHT)2.3 cm2 MR Max PG80 mmHg TDI E/E' Uxjzgh65.3E/E' Lateral8.8 Pulmonary Valve PV Vmax1.1 m/sPV VTI0.24 mPV Mean GR2 mmHg PV Peak GR4.8 mmHgPI End Elizabeth. Pernell 1.2 cm/s Tricuspid Valve TR Vmax2.6 m/sRAP (EST) 3 kfVmMNNM28.9 mmHg TR Peak GR26.9 mmHg Left Ventricle Left ventricular cavity size is normal. Mild-moderate anterior wall hypokinesis There is mild concent rufino left ventricular hypertrophy. LVEF is 40-45%. Stage I diastolic dysfunction. Right Ventricle The right ventricle is normal size. Right ventricular systolic function appears reduced. Atria The left atrium is moderately dilated. The right atrium size is normal. Aortic Valve Aortic valve is trileaflet. Aortic valve leaflets are sclerotic but open well. Mild aortic regurgitat ion. There is no aortic valvular stenosis. Mitral Valve Mitral valve leaflets are sclerotic but open well. Mitral regurgitation is trace. There is no mitral valve stenosis. Tricuspid Valve The tricuspid valve leaflets appear normal. There is trace to mild tricuspid regurgitation. Right shiloh tricular systolic pressure is estimated at 30 mmHg. Pulmonic Valve The pulmonic valve leaflets appear normal. There is trace pulmonic valvular regurgitation. Great Vessels The aortic root is normal in size. IVC is normal in size and collapses >50% with inspiration. Pericardium No pericardial effusion. Conclusion LVEF is 40-45%. Stage I diastolic dysfunction. Mild-moderate anterior wall hypokinesis Mild aortic regurgitation. The aortic root is normal in size.
== END | disposition home or self-care (01) ==
LOC: SHCH 11:07
PROVIDERS: ATTEND Internal Medicine Cardiovascular Disease
DX: I08.3 Combined rheumatic disorders of mitral, aortic and tricuspid valves (principal); R01.1 Cardiac murmur, unspecified
CPT/HCPCS: 93306

== ENCOUNTER 2024-11-11 15:49 | Emergency (ER) | payer OTHER, MEDICAID ==
[~2024-11-11] VITALS: Ht 162.6 cm; Wt 77.1 kg
--- NOTE | 2024-11-11 16:02 | NUR ---
PT STATES SHE TOOK 1 HYDROCODONE PILL AT 1030 AND ANOTHER ONE AT 1530. DENIES ANY RELIEF
--- NOTE | 2024-11-11 16:26 | HMCIMG ---
Exam Type: HIP UNILAT 2-3VW RIGHT Clinical Information: pain Comparison: None Findings: There is osteopenia. The examination is otherwise unremarkable. No fractures or dislocations are seen. No radiopaque foreign bodies are noted. Soft tissues are preserved. IMPRESSION: Osteopenia. Otherwise normal exam.
[2024-11-11] MEDS: TRIAMCINOLONE ACETONIDE 40 MG/ML 1ML VIAL IM ONE (16:29)
[2024-11-11] MEDS: ORPHENADRINE 60MG/2ML IM ONE (16:30)
--- NOTE | 2024-11-11 16:40 | ERN ---
General Chief Complaint: Lower Extremity Pain/Injury Stated Complaint: LOWER RIGHT PAIN Time Seen by MD: 15:52 Source: patient History of Present Illness Initial Comments Patient is a 68-year-old female coming in to be evaluated for right hip pain. Patient states that the right hip pain radiates down the right leg states this has been one week. She does not recall traumatic event that led to this pain. But she also states that she has a extensive history of back pain Allergies: Coded Allergies: No Known Drug Allergies (Unverified Allergy, Unknown, 02/01/16) Home Meds Active Scripts Ibuprofen (Ibuprofen) 400 Mg Tablet, 1 TAB PO TID for pain or fever for 10 Days, #30 TAB 0 Refills Prov:MICHELLE MOSER MD 08/09/24 Acetaminophen (Tylenol) 500 Mg Tab, 1 TAB PO Q6HPRN PRN for pain or fever for 15 Days, #60 TAB 0 Refills Prov:MICHELLE MOSER MD 08/09/24 Nitrofurantoin/Nitrofuran Mac (Macrobid) 100 Mg Cap, 1 CAP PO BID for 7 Days, #14 CAP 0 Refills Prov:MARNI SAM MD 07/03/24 Oseltamivir Phosphate (Tamiflu) 75 Mg Cap, 1 CAP PO BID for 5 Days, #10 CAP 0 Refills Prov:MARNI SAM MD 07/03/24 Isosorbide Dinitrate (Isordil) 20 Mg Tablet, 20 MG PO BID, #60 TAB 0 Refills Prov:ROC PALACIOS MD 05/25/24 Hydralazine HCl (Apresoline) 25 Mg Tab, 25 MG PO QID, #120 TAB 0 Refills Prov:ROC PALACIOS MD 05/25/24 Amlodipine Besylate (Norvasc 5Mg Tab) 5 Mg Tablet, 10 MG PO DAILY, #30 TAB 0 Refills Prov:ROC PALACIOS MD 05/25/24 Furosemide (Lasix 20Mg Tab) 20 Mg Tablet, 20 MG PO DAILY, #30 TAB Prov:IRENE JOHN 05/25/24 Lisinopril (Lisinopril) 20 Mg Tablet, 20 MG PO Q12H, #60 TAB Prov:IRENE JOHN 05/24/24 Metoprolol Succinate (Toprol Xl) 50 Mg Tab.er.24h, 50 MG PO BID, #60 TAB Prov:IRENE JOHN [place] 05/24/24 Clopidogrel Bisulfate (Plavix) 75 Mg Tablet, 75 MG PO DAILY, #90 TAB Prov:IRENE JOHN [place] 05/24/24 Atorvastatin Calcium (LIPITOR) 40 Mg Tablet, 40 MG PO DAILY, #90 TAB Prov:JOHN,IRENE R [place] 05/24/24 Aspirin (ASPIRIN 81MG CHEW TAB) 81 Mg Tab.chew, 81 MG PO DAILY, #90 TAB.CHEW Prov:JOHNIRENE Encinas [place] 05/24/24 Potassium Chloride (Potassium Chloride) 20 Meq Tablet.er, 20 MEQ PO DAILY, #30 TAB 0 Refills Prov:LASHANDA NIÑO [facility] 11/29/22 Aspirin (ASPIRIN 81 MG ECTAB) 81 Mg Ectab, 81 MG PO DAILY, #30 TAB.EC 0 Refills Prov:LASHANDA NIÑO [facility] 11/29/22 Reported Medications [Levemir] No Conflict Check 05/24/24 Past Medical History Past Medical History: Diabetes-Type II, Hypertension, Sciatica Medical History Other: PNEUMONIA Past Surgical History: CABG, Surgical History Other: OPEN HEART SX (10/2022) Social History Social History: Other ROS Dictation CONSTITUTIONAL: No chills, no fever, no weakness, no diaphoresis, no malaise. HEAD/FACE: No signs of trauma. EENT: No eye pain, no blurred vision, no tearing, no double vision, no ear pain, no ear discharge, no nose pain, no nasal congestion, no throat pain, no throat swelling, no mouth pain. RESPIRATORY: No cough, no orthopnea, no SOB, no stridor, no wheezing. CARDIOVASCULAR: No chest pain, no edema, no palpitations, no syncope. GASTROINTESTINAL/ABDOMINAL: No abdominal pain, no constipation, no diarrhea, no nausea, no vomiting. GENITOURINARY: No abnormal discharge, no dysuria, no frequent urination, no hematuria. No complaints of pain in the genitals. MUSCULOSKELETAL: back pain, no gout, joint pain, no joint swelling, muscle pain, no muscle stiffness, no neck pain. INTEGUMENTARY: No change in color, no change in hair/nails, no dryness, no lesion, no lumps, no rash. NEUROLOGICAL/PSYCH: No anxiety, not depressed, no emotional problem, no headache, no numbness, no pre-existing deficit, no history of seizures, no tremors, no weakness. HEMATOLOGIC/LYMPHATIC: Not anemic, no history of blood clots, no apparent bleeding, no bruising, glands not swollen. All Systems Negative, Except as Noted. Physical Exam Physical Exam Dictation VITAL SIGNS: Reviewed. GENERAL APPEARANCE: Alert, oriented x3, no acute distress, obese. HEAD AND FACE: Non-traumatic. EYES: PERRL, pink conjunctivas, eyelid no trauma, anterior chamber clear. EARS: Pinnas intact and no signs of trauma or erythema. Ear canals clear and no discharge. TMs no erythema. NOSE: No discharge, no bleeding. OROPHARYNX: Mouth normal, teeth no caries, tongue pink. Pharynx clear, no erythema. Tonsils no exudates, no abscesses noted. Mucous membrane moist. NECK: Supple, non-tender, no thyromegaly, no masses, no JVD, no bruits. BREAST: Deferred. CHEST: No tenderness, no crepitus, no paradoxical movement, no retractions. LUNGS: Clear, well-ventilated, symmetric, no rales, no wheezing, no rhonchi, no stridor, good breath sounds bilaterally. HEART: Regular rate, regular rhythm, no murmur, no gallops. VASCULAR: No peripheral edema. ABDOMEN: Soft, positive bowel sounds, nondistended, no guarding, nontender, no rebound, no masses no hepatomegaly, no splenomegaly, no Bai's sign, no hernias. RECTAL: Deferred. GENITAL: Deferred. NEUROLOGICAL: Normal speech, gross motor function intact, gross sensory function intact. MUSCULOSKELETAL: Neck nontender, full range of motion, back nontender, full range of motion. EXTREMITIES: Nontender, full range of motion. Right hip pain, right piriformis muscle tenderness SKIN: Color pink, dry, no turgor, no rash, no lacerations, no abrasions, no contusions. LYMPHATICS: Deferred. Results Laboratory and Microbiology Labs Reviewed?: Yes EKG/XRAY/US/CT/MRI X-RAY Comment [address] [place] [id number] IMAGING REPORT Signed PATIENT: SRIKANTH WATTERS MR#: [id number] : 1955 SEX: F AGE: 68 LOCATION: [facility] ORDER 54 STATUS: REG ER REPORT#: [id number] SERVICE 53 REASON: pain ORDERING PHYSICIAN: ABDIRIZAK AMEZCUA MD PROCEDURE: HIP U 2V R - HIP UNILAT 2-3VW RIGHT Exam Type: HIP UNILAT 2-3VW RIGHT Clinical Information: pain Comparison: None Findings: There is osteopenia. The examination is otherwise unremarkable. No fractures or dislocations are seen. No radiopaque foreign bodies are noted. Soft tissues are preserved. IMPRESSION: Osteopenia. Otherwise normal exam. DICTATED BY: CHARISSE BEARD MD DATE: 11/11/241623 ELECTRONICALLY SIGNED BY: CHARISSE BEARD MD DATE: 11/11/241625 MDM MDM: Differential diagnosis: Sciatica, back strain, acute on chronic back pain, Rationale: Tests considered and ordered secondary to shared decision making include: Previous outside records reviewed: Old ER visits. Risk of complication and/or morbidity or mortality of patient management: None Patient is a 68-year-old female coming in to be evaluated for right pain. X-ray did not disclose acute findings. Patient received antispasmodics and anti- inflammatories states her pain improved significantly;. Patient will be discharged in stable condition I did advised him appropriate follow up with PCP and/or grounds/maintenance specialist for long-term management chronic back pain. ED Course Orders Procedure Category Date Status Time Orphenadrine Citrate PHA 11/11/24 Complete (Norflex) 16:00 Triamcinolone Acet PHA 11/11/24 Complete 40mg/Ml 1ml (Kenalog 16:00 Hip Unilat 2-3vw Right RAD 11/11/24 Resulted 15:54 Current Medications Medications (Trade) Dose Ordered Sig/Brett Route PRN Reason Start Time Stop Time Status Last Admin Dose Admin Orphenadrine Citrate (Norflex) 60 mg ONCE ONCE IM 11/11/24 16:00 11/11/24 16:01 DC 11/11/24 16:30 Triamcinolone Acetonide (Kenalog 40) 40 mg ONCE ONCE IM 11/11/24 16:00 11/11/24 16:01 DC 11/11/24 16:29 Vital Signs Date Time Temp Pulse Resp B/P (MAP) Pulse Ox O2 Delivery O2 Flow Rate FiO2 11/11/24 15:57 98.2 65 23 234/93 100 Room Air DX & DISP Disposition: Discharge Departure Impression: Primary Impression: Sciatica Condition: Stable Scripts Methocarbamol (Robaxin) 750 Mg Tab 1 TAB PO BID for 7 Days, #14 TAB 0 Refills Prov: ABDIRIZAK AMEZCUA MD 11/11/24 Naproxen (Naproxen) 375 Mg Tablet.dr 375 MG PO BID PRN for PAIN LEVEL 1 TO 5 for 7 Days, #14 TAB Prov: ABDIRIZAK AMEZCUA MD 11/11/24 Additional Instructions: FOLLOW-UP WITH PRIMARY CARE PROVIDER IN 1 TO 2 DAYS. TAKE MEDICATIONS DIRECTED HERE IN THE EMERGENCY ROOM. OKAY TO CONTINUE HOME MEDICATIONS UNLESS OTHERWISE DISCUSSED DURING YOUR VISIT IN THE EMERGENCY ROOM TODAY. RETURN TO YOUR NEAREST EMERGENCY ROOM IF SYMPTOMS WORSEN OR IF THERE IS NO IMPROVEMENT. CALL 911 IF YOU NEED IMMEDIATE ASSISTANCE. TAKE TYLENOL BICH-CDS-OFOJXOH NEEDED AND IF NO CONTRAINDICATIONS ARE PRESENT. INCREASE ORAL HYDRATION. A WOUND CULTURE OR URINE CULTURE WAS ORDERED HERE IN THE EMERGENCY ROOM DEPARTMENT PLEASE FOLLOW-UP WITH PRIMARY CARE PROVIDER AND ADVISE THEM TO GET REPEAT PORTS FROM OUR FACILITY. IF YOU HAD ANY IRMA WRAP/SPLINTS THAT WERE APPLIED HERE, PLEASE DO NOT REMOVE THEM UNTIL YOU SEE YOUR PRIMARY CARE OR SPECIALTY. Referrals: Referrals: JUANITA ENRIQUEZ MD (PCP) Time of Disposition: 16:51 ABDIRIZAK AMEZCUA MD November 11, 2024 16:40
[2024-11-11 16:49] VITALS: BP 179/89; PULSE 74; RESP 18; TEMP 98.2; O2SAT 99
[2024-11-11] MEDS ORDERED: NAPR-1505 PO (16:52)
[2024-11-11] MEDS ORDERED: METH-662 PO (16:52)
== END 2024-11-11 16:58 | disposition home or self-care (01) ==
LOC: EDH 15:49
DX: M54.31 Sciatica, right side (principal); E11.9 Type 2 diabetes mellitus without complications; I10 Essential (primary) hypertension; Z79.02 Long term (current) use of antithrombotics/antiplatelets; Z79.1 Long term (current) use of non-steroidal anti-inflammatories (NSAID); Z79.82 Long term (current) use of aspirin; Z79.899 Other long term (current) drug therapy; Z95.1 Presence of aortocoronary bypass graft
CPT/HCPCS: 99284; 73502; 96372 ×2; J3301; J2360

== ENCOUNTER 2025-01-05 15:43 | Emergency (ER) | payer OTHER, MEDICARE ==
[~2025-01-05] VITALS: Ht 162.6 cm; Wt 72.6 kg
[~2025-01-05 15:43] MED LIST changes: +METH-662 PO; +NAPR-1505 PO
[2025-01-05 16:54] LABS: IMMATURE GRANULOCYTE ABSOLUTE 0.03 K/uL (0-1); NUCLEATED RED BLOOD CELLS 0.0 % (0.0-0.19); PLATELET COUNT (AUTO) 132 K/uL (130-400); RED BLOOD CELL COUNT(AUTO) 4.93 MIL/uL (4.00-5.50); RED CELL DISTRIBUTION WIDTH 13.5 % (11.0-15.5); WHITE BLOOD COUNT (AUTO) 8.3 K/uL (4.8-10.8)
[2025-01-05 16:56] LABS: APPEARANCE,URINE CLEAR (CLEAR); GLUCOSE, URINE (UA) NEGATIVE (NEGATIVE); LEUKOCYTE ESTERASE ,URINE NEGATIVE Leu/uL (NEGATIVE); NITRATE,URINE NEGATIVE (NEGATIVE); OCCULT BLOOD,URINE NEGATIVE (NEGATIVE)
[2025-01-05 17:09] LABS: ADD UA MICROSCOPIC YES
[2025-01-05 17:10] LABS: SQUAMOUS EPITHELIAL CELL,UR RARE /HPF (0-2)
[2025-01-05 17:17] LABS: CREATININE 0.7 mg/dL (0.5-1.0); GLOMERULAR FILTR. RATE CALC 94.0 mL/min (>90); GLUCOSE,RANDOM 142.0 mg/dL (70-105); SODIUM SERUM 146.0 mmol/L (136-145); UREA NITROGEN, BLOOD 21.0 mg/dL (7-18)
--- NOTE | 2025-01-05 17:31 | HMCIMG ---
EXAM: CR Abdomen, 2 View. CLINICAL HISTORY: constipation COMPARISON: None provided. FINDINGS: BOWEL: The bowel gas pattern is within normal limits. Abundant colonic fecal matter may reflect constipation. PERITONEUM/SOFT TISSUES: No free air evident. No pathologic appearing calcification. BONES: No acute osseous abnormality. IMPRESSION: The bowel gas pattern is within normal limits. Abundant colonic fecal matter may reflect constipation. /[employer]
[2025-01-05 18:35] VITALS: BP 157/78; PULSE 77; RESP 18; TEMP 97.9; O2SAT 97
[2025-01-05] MEDS ORDERED: DOCU-116 PO (18:44)
--- NOTE | 2025-01-05 18:46 | ERN ---
ED Note History of Present Illness Stated Complaint: UNABLE TO URINATE Chief Complaint: Vaginal Problems/Bleeding Time Seen by MD: 16:21 Time Seen by Midlevel: 16:25 Dictation: 69-year-old female complaining of lower abdominal pain, fullness for the last three days. Patient also states she is constipated and has trouble having bowel movements. Since the last bowel movement she had it was hard and caused her pain. Patient states she went to the PCP three days ago and told her it was a yeast infection but states has not felt any relief. Allergies: Coded Allergies: No Known Drug Allergies (Unverified Allergy, Unknown, 02/01/16) Home Meds Active Scripts Methocarbamol (Robaxin) 750 Mg Tab, 1 TAB PO BID for 7 Days, #14 TAB 0 Refills Prov:ABDIRIZAK AMEZCUA MD 11/11/24 Naproxen (Naproxen) 375 Mg Tablet.dr, 375 MG PO BID PRN for PAIN LEVEL 1 TO 5 for 7 Days, #14 TAB Prov:ABDIRIZAK AMEZCUA MD 11/11/24 Ibuprofen (Ibuprofen) 400 Mg Tablet, 1 TAB PO TID for pain or fever for 10 Days, #30 TAB 0 Refills Prov:MICHELLE MOSER MD 08/09/24 Acetaminophen (Tylenol) 500 Mg Tab, 1 TAB PO Q6HPRN PRN for pain or fever for 15 Days, #60 TAB 0 Refills Prov:MICHELLE MOSER MD 08/09/24 Nitrofurantoin/Nitrofuran Mac (Macrobid) 100 Mg Cap, 1 CAP PO BID for 7 Days, #14 CAP 0 Refills Prov:MARNI SAM MD 07/03/24 Oseltamivir Phosphate (Tamiflu) 75 Mg Cap, 1 CAP PO BID for 5 Days, #10 CAP 0 Refills Prov:MARNI SAM MD 07/03/24 Isosorbide Dinitrate (Isordil) 20 Mg Tablet, 20 MG PO BID, #60 TAB 0 Refills Prov:ROC PALACIOS MD 05/25/24 Hydralazine HCl (Apresoline) 25 Mg Tab, 25 MG PO QID, #120 TAB 0 Refills Prov:ROC PALACIOS MD 05/25/24 Amlodipine Besylate (Norvasc 5Mg Tab) 5 Mg Tablet, 10 MG PO DAILY, #30 TAB 0 Refills Prov:ROC PALACIOS MD 05/25/24 Furosemide (Lasix 20Mg Tab) 20 Mg Tablet, 20 MG PO DAILY, #30 TAB Prov:IRENE JOHN 05/25/24 Lisinopril (Lisinopril) 20 Mg Tablet, 20 MG PO Q12H, #60 TAB Prov:IRENE JOHN 05/24/24 Metoprolol Succinate (Toprol Xl) 50 Mg Tab.er.24h, 50 MG PO BID, #60 TAB Prov:IRENE JOHN 05/24/24 Clopidogrel Bisulfate (Plavix) 75 Mg Tablet, 75 MG PO DAILY, #90 TAB Prov:IRENE JOHN 05/24/24 Atorvastatin Calcium (LIPITOR) 40 Mg Tablet, 40 MG PO DAILY, #90 TAB Prov:IRENE JOHN 05/24/24 Aspirin (ASPIRIN 81MG CHEW TAB) 81 Mg Tab.chew, 81 MG PO DAILY, #90 TAB.CHEW Prov:IRENE JOHN 05/24/24 Potassium Chloride (Potassium Chloride) 20 Meq Tablet.er, 20 MEQ PO DAILY, #30 TAB 0 Refills Prov:LASHANDA NIÑO [facility] 11/29/22 Aspirin (ASPIRIN 81 MG ECTAB) 81 Mg Ectab, 81 MG PO DAILY, #30 TAB.EC 0 Refills Prov:LASHANDA NIÑO [facility] 11/29/22 Reported Medications [Levemir] No Conflict Check 05/24/24 Past Medical History Past Medical History: Diabetes-Type II, Heart Disease, Hypertension, Pneumonia, Sciatica Additional Past Medical Hx: PNEUMONIA Surgical History: CABG, Surgical History Other: OPEN HEART SX (10/2022) Social History: Other Review of System Dictation Constitutional: Negative for fever,chills, and weight loss Eyes: Negative for injury, pain,redness, and discharge ENT: Negative for injury,pain or swelling Cardiovascular: Negative for chest pain, palpitations, and edema Respiratory: Negative for shortness of breath, cough, and wheezing, Abdomen/GI: Lower abdominal pain, pressure Back: Negative for injury and pain : Negative for injury, bleeding and discharge MS/Extremity: Negative for injury and deformity Skin: Negative for rash, and discoloration Neuro: Negative for headache, weakness, numbness, tingling, and seizure Psych: Negative for suicide ideation, homicidal ideation, and hallucinations Review of Systems: was completed Initial Vital Sign VS Vital Signs Date Time Temp Pulse Resp B/P (MAP) Pulse Ox O2 Delivery O2 Flow Rate FiO2 01/05/25 15:50 97.9 80 16 191/101 97 Room Air 0 01/05/25 16:51 21 Physical Exam Dictation General: awake, alert, NAD Head/Face: Normocephalic, atraumatic Eyes: PERRL, EOMI, vision at baseline ENT: oral cavity clear, TMs clear, no signs of infection Neck: Trachea midline, supple, no nuchal rigidity Cardiovascular: RRR, normal S1/S2, No MRGs, no JVD Respiratory: CTAB, no respiratory distress, No rales or wheezes Abdomen: Soft, non-tender, non-distended, normal bowel sounds, no guarding or rebound. Skin: Warm, dry, normal turgor, no rash MS/Extremity: Pulses equal, no cyanosis, neurovascular intact, FROM Neuro: COAx4, GCS 15, strength 5/5, CN 2-12 intact, normal cerebellar exam, normal gait, Psych: Normal behavior, mood, and affect normal Results (Laboratory/Radiology) Laboratory/Radiology Laboratory Tests Test 01/05/25 16:36 01/05/25 16:43 Urine Color COLORLESS (YELLOW) Urine Appearance CLEAR (CLEAR) Urine pH 5.5 (5.0-8.0) Urine Specific [place] 1.010 (1.001-1.031) Urine Protein 30 mg/dL (NEGATIVE) H Urine Glucose (UA) NEGATIVE mg/dL (NEGATIVE) Urine Ketones NEGATIVE mg/dL (NEGATIVE) Urine Occult Blood NEGATIVE (NEGATIVE) Urine Nitrate NEGATIVE (NEGATIVE) Urine Bilirubin NEGATIVE mg/dL (NEGATIVE) Urine Urobilinogen 0.2 mg/dL (0.2-1.0) Urine Leukocyte Esterase NEGATIVE Artemio/uL Urine RBC 0-1 /HPF (0-1) Urine WBC 2-5 /HPF (0-1) H Urine Squamous Epithelial Cells RARE /HPF (0-2) Urine Bacteria RARE /HPF (None Seen) White Blood Count 8.3 K/uL (4.8-10.8) Red Blood Count 4.93 MIL/uL (4.00-5.50) Hemoglobin 14.2 g/dL (12.0-16.0) Hematocrit 43.7 % (36-48) Mean Corpuscular Volume 88.6 fL (79-99) Mean Corpuscular Hemoglobin 28.8 pg (27.0-33.0) Mean Corpuscular Hemoglobin Concent 32.5 g/dL (32.0-36.0) Red Cell Distribution Width 13.5 % (11.0-15.5) Platelet Count 132 K/uL (130-400) Mean Platelet Volume 9.7 fL (7.5-10.5) Immature Granulocyte % (Auto) 0.4 % (0-1) Neutrophils (%) (Auto) 68.7 % (40.0-77.0) Lymphocytes (%) (Auto) 21.6 % (21.0-51.0) Monocytes (%) (Auto) 7.5 % (3.0-13.0) Eosinophils (%) (Auto) 1.4 % (0.0-8.0) Basophils (%) (Auto) 0.4 % (0.0-5.0) Neutrophils # (Auto) 5.7 K/uL (1.8-7.7) Lymphocytes # (Auto) 1.8 K/uL (1.0-4.8) Monocytes # (Auto) 0.6 K/uL (0.1-1.0) Eosinophils # (Auto) 0.12 K/uL (0.00-0.70) Basophils # (Auto) 0.03 K/uL (0.00-0.20) Absolute Immature Granulocyte (auto 0.03 K/uL (0-1) Nucleated Red Blood Cells 0.0 % (0.0-0.19) Sodium Level 146 mmol/L (136-145) H Potassium Level 3.8 mmol/L (3.5-5.1) Chloride Level 106 mmol/L (101-111) Carbon Dioxide Level 30 mmol/L (21-32) Blood Urea Nitrogen 21 mg/dL (7-18) H Creatinine 0.7 mg/dL (0.5-1.0) Glomerular Filtration Rate Calc 94 mL/min (>90) Random Glucose 142 mg/dL (70-105) H Total Calcium 9.1 mg/dL (8.5-10.1) Labs Reviewed?: Yes X-RAY Comment: [facility] [address] [place] [address] IMAGING REPORT Signed PATIENT: SRIKANTH WATTERS MR#: [id number] : 1955 SEX: F AGE: 69 LOCATION: [facility] ORDER 32 STATUS: REG ER REPORT#: [id number] SERVICE [id number] REASON: constipation ORDERING PHYSICIAN: SUMMER TEAGUE NP PROCEDURE: ABD 1VW - ABD 1VW EXAM: CR Abdomen, 2 View. CLINICAL HISTORY: constipation COMPARISON: None provided. FINDINGS: BOWEL: The bowel gas pattern is within normal limits. Abundant colonic fecal matter may reflect constipation. PERITONEUM/SOFT TISSUES: No free air evident. No pathologic appearing calcification. BONES: No acute osseous abnormality. IMPRESSION: The bowel gas pattern is within normal limits. Abundant colonic fecal matter may reflect constipation. /Equality DICTATED BY: ROMERO READ Jr., MD DATE: 01/05/251829 ELECTRONICALLY SIGNED BY: ROMERO READ Jr., MD DATE: 01/05/251829 ED Course ED Course Orders Procedure Category Date Status Time Cbc With Differential LAB 01/05/25 Complete 16:32 Basic Metabolic Panel LAB 01/05/25 Complete 16:32 Urinalysis Profile LAB 01/05/25 Complete 16:32 Abd 1vw RAD 01/05/25 Resulted 16:32 Vital Signs Date Time Temp Pulse Resp B/P (MAP) Pulse Ox O2 Delivery O2 Flow Rate FiO2 01/05/25 18:35 97.9 77 18 157/78 97 Room Air* 0 01/05/25 17:45 97.9 77 18 171/84 97 Room Air* 0 01/05/25 16:51 77 18 217/99 99 Room Air* 0 01/05/25 15:50 97.9 80 16 191/101 97 Room Air 0 Medical Decision Making MDM MDM: 69-year-old female complaining of lower abdominal pain, fullness for the last three days. Patient also states she is constipated and has trouble having bowel movements. Since the last bowel movement she had it was hard and caused her pain. Patient states she went to the PCP three days ago and told her it was a yeast infection but states has not felt any relief.CBC shows no leukocytosis, no anemia, no thrombocytopenia. Chemistry shows elevated BUN at 21, and mild hyper natremia 146, could be related to dehydration. UA shows no evidence of urinary tract infection. Patient states this morning she took a laxative and has gone here in the ER about two 3 times and states she feels much better states she feels relief of her symptoms. Discussed with the patient that the x- ray shows constipation therefore she is takes stool softeners increase fluid intake and increase fiber intake. Educated that they constipation could be causing the pain in the fullness in her lower abdomen. Educated on signs and symptoms when to return back to the ER like fever, nausea or vomiting. Patient verbalized understanding, answered all questions. Differential diagnosis: Constipation, urinary tract infection Rationale: Tests considered and ordered secondary to shared decision making include: Previous outside records reviewed: Old ER visits. Risk of complication and/or morbidity or mortality of patient management: None Medications-Per medication reconciliation Need for hospitalization: Patient does not meet criteria for hospitalization. Need for emergency major/minor surgery: No There are no social concerns with this patient. Prescription drug management Prescriptions will include symptomatic care Patient's prior external medical records from other ER visits were reviewed by me as indicated. Prior testing and results from previous visits were reviewed. Prior tests were taken into account with medical decision making and resource utilization, independent historian/historians were used to obtain complete medical history. I independently interpreted the test that were performed, results were reviewed by me and considered findings on radiology if ordered. Medical management and examination interpretation discussions were had by me with other qualified healthcare professionals as indicated for the patient's care. DX & DISP Disposition: Discharge Departure Impression: Primary Impression: Constipation Condition: Stable Scripts Docusate Sodium (Colace) 100 Mg Capsule 100 MG PO TID for constipation, #30 CAP 0 Refills Prov: SUMMER TEAGUE [employer] 01/05/25 Additional Instructions: Please follow up with your primary doctor in 1-2 days. Increase hydration increased fiber intake in your diet. Return to the hospital if you develop any fevers, nausea or vomiting. Referrals: JUANITA ENRIQUEZ MD (PCP) Time of Disposition: 18:44 I have reviewed the case, and I agree with, Diagnosis and Plan SUMMER TEAGUE NP Jan 05, 2025 18:46
== END 2025-01-05 18:56 | disposition home or self-care (01) ==
LOC: EDH 15:43
DX: K59.00 Constipation, unspecified (principal); E11.9 Type 2 diabetes mellitus without complications; I10 Essential (primary) hypertension; Z79.02 Long term (current) use of antithrombotics/antiplatelets; Z79.1 Long term (current) use of non-steroidal anti-inflammatories (NSAID); Z79.82 Long term (current) use of aspirin; Z79.899 Other long term (current) drug therapy; Z95.1 Presence of aortocoronary bypass graft
CPT/HCPCS: 36415; 74018; 80048; 81001; 85025; 99284

== ENCOUNTER 2025-01-25 12:09 | Inpatient (IN) | payer OTHER, MEDICAID ==
[~2025-01-25] VITALS: Ht 162.6 cm; Wt 79.3 kg
[~2025-01-25 12:09] MED LIST changes: +DOCU-116 PO
--- NOTE | 2025-01-25 12:17 | ERN ---
ED Note History of Present Illness Stated Complaint: GBW Chief Complaint: Fever Time Seen by MD: 12:11 Dictation: PATIENT IS A 69-YEAR-OLD FEMALE COMING IN TODAY WITH FEVER CHILLS AND FLU-LIKE SYMPTOMS ONSET YESTERDAY. SHE HAS HAD NAUSEA WITHOUT VOMITING DRY COUGH. SHE DENIES CHANGES IN URINATION. STATES SHE WENT TO A FAMILY GATHERING TWO DAYS AGO AND PEOPLE WERE SICK THERE. T-MAX 102.5. SHE HAS TAKEN NOTHING TODAY PRIOR TO ARRIVAL FOR PAIN. PATIENT CAME VIA EMS TO [facility]. Allergies: Coded Allergies: No Known Drug Allergies (Unverified Allergy, Unknown, 02/01/16) Home Meds Active Scripts Docusate Sodium (Colace) 100 Mg Capsule, 100 MG PO TID for constipation, #30 CAP 0 Refills Prov:SUMMER TEAGUE NP 01/05/25 Methocarbamol (Robaxin) 750 Mg Tab, 1 TAB PO BID for 7 Days, #14 TAB 0 Refills Prov:ABDIRIZAK AMEZCUA MD 11/11/24 Naproxen (Naproxen) 375 Mg Tablet.dr, 375 MG PO BID PRN for PAIN LEVEL 1 TO 5 for 7 Days, #14 TAB Prov:ABDIRIZAK AMEZCUA MD 11/11/24 Ibuprofen (Ibuprofen) 400 Mg Tablet, 1 TAB PO TID for pain or fever for 10 Days, #30 TAB 0 Refills Prov:MICHELLE MOSER MD 08/09/24 Acetaminophen (Tylenol) 500 Mg Tab, 1 TAB PO Q6HPRN PRN for pain or fever for 15 Days, #60 TAB 0 Refills Prov:MICHELLE MOSER MD 08/09/24 Nitrofurantoin/Nitrofuran Mac (Macrobid) 100 Mg Cap, 1 CAP PO BID for 7 Days, #14 CAP 0 Refills Prov:MARNI SAM MD 07/03/24 Oseltamivir Phosphate (Tamiflu) 75 Mg Cap, 1 CAP PO BID for 5 Days, #10 CAP 0 Refills Prov:MARNI SAM MD 07/03/24 Isosorbide Dinitrate (Isordil) 20 Mg Tablet, 20 MG PO BID, #60 TAB 0 Refills Prov:ROC PALACIOS MD 05/25/24 Hydralazine HCl (Apresoline) 25 Mg Tab, 25 MG PO QID, #120 TAB 0 Refills Prov:ROC PALACIOS MD 05/25/24 Amlodipine Besylate (Norvasc 5Mg Tab) 5 Mg Tablet, 10 MG PO DAILY, #30 TAB 0 Refills Prov:ROC PALACIOS MD 05/25/24 Furosemide (Lasix 20Mg Tab) 20 Mg Tablet, 20 MG PO DAILY, #30 TAB Prov:IRENE JOHN 05/25/24 Lisinopril (Lisinopril) 20 Mg Tablet, 20 MG PO Q12H, #60 TAB Prov:IRENE JOHN 05/24/24 Metoprolol Succinate (Toprol Xl) 50 Mg Tab.er.24h, 50 MG PO BID, #60 TAB Prov:IRENE JOHN 05/24/24 Clopidogrel Bisulfate (Plavix) 75 Mg Tablet, 75 MG PO DAILY, #90 TAB Prov:IRENE JOHN 05/24/24 Atorvastatin Calcium (LIPITOR) 40 Mg Tablet, 40 MG PO DAILY, #90 TAB Prov:IRENE JOHN 05/24/24 Aspirin (ASPIRIN 81MG CHEW TAB) 81 Mg Tab.chew, 81 MG PO DAILY, #90 TAB.CHEW Prov:IRENE JOHN 05/24/24 Potassium Chloride (Potassium Chloride) 20 Meq Tablet.er, 20 MEQ PO DAILY, #30 TAB 0 Refills Prov:LASHANDA NIÑO [facility] 11/29/22 Aspirin (ASPIRIN 81 MG ECTAB) 81 Mg Ectab, 81 MG PO DAILY, #30 TAB.EC 0 Refills Prov:LASHANDA NIÑO [facility] 11/29/22 Reported Medications [Levemir] No Conflict Check 05/24/24 Past Medical History Past Medical History: Diabetes-Type II, Heart Disease, Hypertension, Pneumonia, Sciatica Additional Past Medical Hx: PNEUMONIA Surgical History: CABG, Surgical History Other: OPEN HEART SX (10/2022) Social History: Other History: Not Applicable RN Note Reviewed/Agreed w/PFSH: Yes Review of System Dictation CONSTITUTIONAL: NEGATIVE EXCEPT FOR HPI FEVER CHILLS HEAD/FACE: NEGATIVE EXCEPT FOR HPI EENT: NEGATIVE EXCEPT FOR HPI CLEAR RHINITIS WITH SORE THROAT RESPIRATORY: NEGATIVE EXCEPT FOR HPI DRY COUGH GASTROINTESTINAL/ABDOMINAL: NEGATIVE EXCEPT FOR HPI NAUSEA GENITOURINARY: NEGATIVE EXCEPT FOR HPI MUSCULOSKELETAL: NEGATIVE EXCEPT FOR HPI INTEGUMENTARY: NEGATIVE EXCEPT FOR HPI NEUROLOGICAL/PSYCH: NEGATIVE EXCEPT FOR HPI HEMATOLOGIC/LYMPHATIC: NEGATIVE EXCEPT FOR HPI ALL SYSTEMS NEGATIVE, EXCEPT NOTED ABOVE. 13 POINT REVIEW OF SYSTEMS ASSESSED AND ALL NEGATIVE EXCEPT FOR ABOVE. Initial Vital Sign VS Vital Signs Date Time Temp Pulse Resp B/P (MAP) Pulse Ox O2 Delivery O2 Flow Rate FiO2 01/25/25 12:10 103.3 120 22 171/95 94 Room Air 01/25/25 12:23 0 21 Physical Exam Dictation VITAL SIGNS REVIEWED GENERAL APPEARANCE: ALERT, ORIENTED X 3, MODERATE ACUTE DISTRESS, WELL DEVELOPED, NOURISHED. HEAD AND FACE: NON-TRAUMATIC. EYES: PERRL, PINK CONJUNCTIVAS, EYELID NO TRAUMA, ANTERIOR CHAMBER WITH ARCUS SENILIS. EARS: PINNAS INTACT AND NO SIGNS OF TRAUMA OR ERYTHEMA EAR CANALS CLEAR AND NO DISCHARGE TM NO ERYTHEMA NOSE: CLEAR DISCHARGE, NO BLEEDING. OROPHARYNX: MOUTH NORMAL, TONGUE PINK, PHARYNX CLEAR, MODERATE PHARYNGEAL ERYTHEMA, TONSILS NO EXUDATES, NO ABSCESSES NOTED, MUCOUS MEMBRANE MOIST UVULA MIDLINE, VOICE IS CLEAR NECK: SUPPLE, NON-TENDER, NO THYROMEGALY, NO MASSES, NO JVD, NO BRUITS BREAST:DEFERRED CHEST:NO TENDERNESS, NO CREPITUS, NO PARADOXICAL MOVEMENT, NO RETRACTIONS LUNGS:CLEAR, WELL-VENTILATED, SYMMETRIC, NO RALES, NO WHEEZING, NO RHONCHI, NO STRIDOR, GOOD BREATH SOUNDS BILATERALLY HEART: REGULAR RATE, REGULAR RHYTHM, NO MURMUR, NO GALLOPS VASCULAR: NO PERIPHERAL EDEMA, ABDOMEN: SOFT, POSITIVE BOWEL SOUNDS, NONDISTENDED, NO GUARDING, NONTENDER, NO REBOUND, NO MASSES NO HEPATOMEGALY, NO SPLENOMEGALY, NO HAYDEN'S SIGN, NO HERNIAS. RECTAL: DEFERRED GENITAL: DEFERRED NEUROLOGICAL: NORMAL SPEECH, MOTOR FUNCTION INTACT, SENSORY FUNCTION INTACT MUSCULOSKELETAL: NECK NONTENDER, FULL RANGE OF MOTION, BACK NONTENDER, FULL RANGE OF MOTION, EXTREMITIES: NONTENDER, FULL RANGE OF MOTION SKIN: COLOR PINK, DRY, NO TURGOR, NO RASH, NO LACERATIONS, NO ABRASIONS, NO CONTUSIONS. LYMPHATIC: DEFERRED Results (Laboratory/Radiology) Laboratory/Radiology Laboratory Tests Test 01/25/25 12:20 01/25/25 12:22 01/25/25 12:25 01/25/25 13:28 White Blood Count 11.5 K/uL (4.8-10.8) H Red Blood Count 4.81 MIL/uL (4.00-5.50) Hemoglobin 13.8 g/dL (12.0-16.0) Hematocrit 41.0 % (36-48) Mean Corpuscular Volume 85.2 fL (79-99) Mean Corpuscular Hemoglobin 28.7 pg (27.0-33.0) Mean Corpuscular Hemoglobin Concent 33.7 g/dL (32.0-36.0) Red Cell Distribution Width 13.5 % (11.0-15.5) Platelet Count 101 K/uL (130-400) L Mean Platelet Volume 10.2 fL (7.5-10.5) Immature Granulocyte % (Auto) 0.5 % (0-1) Neutrophils (%) (Auto) 86.8 % (40.0-77.0) H Lymphocytes (%) (Auto) 5.2 % (21.0-51.0) L Monocytes (%) (Auto) 7.0 % (3.0-13.0) Eosinophils (%) (Auto) 0.3 % (0.0-8.0) Basophils (%) (Auto) 0.2 % (0.0-5.0) Neutrophils # (Auto) 10.0 K/uL (1.8-7.7) H Lymphocytes # (Auto) 0.6 K/uL (1.0-4.8) L Monocytes # (Auto) 0.8 K/uL (0.1-1.0) Eosinophils # (Auto) 0.03 K/uL (0.00-0.70) Basophils # (Auto) 0.02 K/uL (0.00-0.20) Absolute Immature Granulocyte (auto 0.06 K/uL (0-1) Nucleated Red Blood Cells 0.0 % (0.0-0.19) White Cell Morphology Comment See comments Sodium Level 141 mmol/L (136-145) Potassium Level 3.2 mmol/L (3.5-5.1) L Chloride Level 105 mmol/L (101-111) Carbon Dioxide Level 27 mmol/L (21-32) Blood Urea Nitrogen 14 mg/dL (7-18) Creatinine 0.6 mg/dL (0.5-1.0) Glomerular Filtration Rate Calc 98 mL/min (>90) Random Glucose 110 mg/dL (70-105) H Lactic Acid Level 1.5 mmol/L (0.8-2.5) Total Calcium 8.4 mg/dL (8.5-10.1) L Total Creatine Kinase 28 U/L (21-232) # Troponin I High Sensitivity 29 ng/L (4-50) 35 ng/L (4-50) Influenza Type A Antigen Negative For Type A Influenza Type B Antigen Negative For Type B SARS-CoV-2 Antigen (Rapid) PRESUMPTIVE NEGATIVE Group A Streptococcus Rapid negative (NEGATIVE) Urine Color YELLOW (YELLOW) Urine Appearance CLOUDY (CLEAR) H Urine pH 5.5 (5.0-8.0) Urine Specific [place] 1.014 (1.001-1.031) Urine Protein 100 mg/dL (NEGATIVE) H Urine Glucose (UA) NEGATIVE mg/dL (NEGATIVE) Urine Ketones 5 mg/dL (NEGATIVE) H Urine Occult Blood SMALL (NEGATIVE) H Urine Nitrate 2+ (NEGATIVE) H Urine Bilirubin NEGATIVE mg/dL (NEGATIVE) Urine Urobilinogen 0.2 mg/dL (0.2-1.0) Urine Leukocyte Esterase 500 Artemio/uL (NEGATIVE) H Urine RBC 6-10 /HPF (0-1) H Urine WBC TNTC /HPF (0-1) H Urine WBC Clumps (Auto) MOD /HPF (0-1) Urine Squamous Epithelial Cells RARE /HPF (0-2) Urine Bacteria Few /HPF (None Seen) EXAM: CR Chest, 1 View. CLINICAL HISTORY: SOB/COUGH COMPARISON: 07/03/2024 FINDINGS: LUNGS: There are no pulmonary infiltrates. There is stable linear scarring in the lingula. PLEURAL SPACES: No evidence of pleural effusion or pneumothorax. MEDIASTINUM: The heart is enlarged, but stable. Again noted are sternotomy wires. BONES: No acute osseous abnormality. IMPRESSION: No acute cardiopulmonary pathology is evident. /[facility] Labs Reviewed?: Yes EKG Comment: EKG SINUS TACHYCARDIA/HEART RATE 108 ST-ELEVATION 1 ML IN LEADS V1 V2 AND V3 ED Course ED Course Orders Procedure Category Date Status Time Iv Insertion CPOE 01/25/25 Transmitted 12:13 Pulse Ox(Continuous) RT 01/25/25 Transmitted 12:13 Vital Signs Per CPOE 01/25/25 Transmitted Routine 12:13 12 Lead Ekg Tracing- EKG 01/25/25 Complete Technical 12:13 Cbc With Differential LAB 01/25/25 Complete 12:13 Blood Cult RICH 01/25/25 In Process 12:13 Urinalysis Profile LAB 01/25/25 Complete 12:13 Culture Urine RICH 01/25/25 In Process 12:13 Creatine Kinase, Total LAB 01/25/25 Complete 12:13 Troponin I High LAB 01/25/25 Complete Sensitivity 12:13 Lactic Acid LAB 01/25/25 Complete 12:13 Basic Metabolic Panel LAB 01/25/25 Complete 12:13 Covid19 (Sars Antigen LAB 01/25/25 Complete Rapid) 12:13 Rapid (Group A Strep) LAB 01/25/25 Complete 12:13 Influenza Type A & B, LAB 01/25/25 Complete Rapid 12:13 Acetaminophen 500mg PHA 01/25/25 Complete Tab (Tylenol 500mg T 12:30 Acetaminophen 500mg PHA 01/25/25 Complete Tab (Tylenol 500mg T 12:14 0.9%Nacl 1000ml (Ns PHA 01/25/25 Complete 1000ml) 12:30 Oseltamivir Phosphate PHA 01/25/25 Complete (Tamiflu) 13:00 Clonidine Hcl 0.2 Mg PHA 01/25/25 In Process Tablet (Catapres 0. 13:30 Troponin I High LAB 01/25/25 Complete Sensitivity 13:13 Chest 1vw RAD 01/25/25 Resulted 13:16 Ceftriaxone 2gm Vial PHA 01/25/25 In Process (Rocephin 2gm Inj) 13:54 Admit Orders ADM 01/25/25 Transmitted 14:39 Edm Admit Bridge Order ADM 01/25/25 Transmitted 14:39 Current Medications Medications (Trade) Dose Ordered Sig/Brett Route PRN Reason Start Time Stop Time Status Last Admin Dose Admin Acetaminophen (TYLenol 500MG TAB) 500 mg STK-MED ONCE .ROUTE 01/25/25 12:14 01/25/25 12:14 DC Acetaminophen (TYLenol 500MG TAB) 1,000 mg ONCE ONCE PO 01/25/25 12:30 01/25/25 12:31 DC 01/25/25 12:20 Ceftriaxone Sodium (Rocephin 2gm Inj) 2 gm ONCE IVPB 01/25/25 13:54 01/25/25 18:00 01/25/25 14:01 Clonidine HCl (CATApres 0.2 MG TAB) 0.2 mg ONCE PO 01/25/25 13:30 01/25/25 17:30 01/25/25 13:36 Oseltamivir Phosphate (Tamiflu) 75 mg ONCE ONCE PO 01/25/25 13:00 01/25/25 13:01 DC Sodium Chloride 1,000 ml @ 0 mls/hr ONCE ONCE IV 01/25/25 12:30 01/25/25 12:31 DC 01/25/25 12:22 Vital Signs Date Time Temp Pulse Resp B/P (MAP) Pulse Ox O2 Delivery O2 Flow Rate FiO2 01/25/25 13:36 192/63 01/25/25 13:10 100.0 117 22 192/69 95 Room Air* 0 21 01/25/25 12:23 103.3 121 22 174/83 97 Room Air* 0 21 01/25/25 12:20 103.3 01/25/25 12:10 103.3 120 22 171/95 94 Room Air 1432/REPEA BLOOD PRESSURE AFTER CLONIDINE 163/85. PATIENT HAS A CONTROLLED RATE. PATIENT HAS A LARGE URINARY TRACT INFECTION HYPOKALEMIA AND POTASSIUM WAS REPLACED. LACTIC ACID 1.5 PATIENT WILL BE ADMITTED TO THE HOSPITAL FOR ACUTE CYSTITIS WITH HEMATURIA SIRS ALERT/HYPOKALEMIA AND UNCONTROLLED HYPERTENSION SPOKE WITH PATIENT AND HER SON AT BEDSIDE AND DISCUSSED TREATMENT OPTIONS TO INCLUDE ADMISSION BOTH AGREED TO ADMISSION. 1440/SPOKE WITH ADRIANE ALEMAN [facility] HOSPITALIST REVIEWED EKG LABS INTERVENTIONS FOR SIRS CRITERIA TO INCLUDE FLUIDS AND ANTIBIOTICS. IN ADDITION HE IS AWARE I HAVE REPLACE POTASSIUM AND GAVE PATIENT CLONIDINE FOR UNCONTROLLED HYPERTENSION. HE AGREED TO ADMIT PATIENT. HEART Score Response (Comments) Value EKG: Repolarization changes 1 Age: > 65yrs (+2) 2 Risk Factors: 1-2 risk factors (+1) 1 Initial Troponin: Normal limit (0) 0 Total 4 Medical Decision Making MDM MDM: DIFFERENTIAL DIAGNOSIS: SEPSIS/ELECTROLYTE IMBALANCE/DEHYDRA TION/PNEUMONIA/BRONCHITIS/SARS COVID/INFLUENZA/STREP/UNCONTROLLED DIABETES/HYPERTENSION/UTI RATIONALE: TESTS CONSIDERED AND ORDERED SECONDARY TO SHARED DECISION MAKING INCLUDE: LABS, ECG AND RADIOLOGY PREVIOUS OUTSIDE RECORDS REVIEWED: OLD ER VISITS. RISK OF COMPLICATION AND/OR MORBIDITY OR MORTALITY OF PATIENT MANAGEMENT: MODERATE MEDICATIONS-PER MEDICATION RECONCILIATION NEED FOR HOSPITALIZATION: PATIENT DOES MEET CRITERIA FOR HOSPITALIZATION. PATIENT WILL NEED TO BE ADMITTED FOR CONTINUED FLUID RESUSCITATION ANTIBIOTICS FOR ACUTE CYSTITIS WITH HEMATURIA NEED FOR EMERGENCY MAJOR/MINOR SURGERY: NO THERE ARE NO SOCIAL CONCERNS WITH THIS PATIENT. PRESCRIPTION DRUG MANAGEMENT PRESCRIPTIONS WILL INCLUDE SYMPTOMATIC CARE PATIENT'S PRIOR EXTERNAL MEDICAL RECORDS FROM OTHER ER VISITS WERE REVIEWED BY ME INDICATED. PRIOR TESTING AND RESULTS FROM PREVIOUS VISITS WERE REVIEWED. PRIOR TESTS WERE TAKEN INTO ACCOUNT WITH MEDICAL DECISION MAKING AND RESOURCE UTILIZATION, INDEPENDENT HISTORIAN/HISTORIANS WERE USED TO OBTAIN COMPLETE MEDICAL HISTORY. I INDEPENDENTLY INTERPRETED THE TEST THAT WERE PERFORMED, RESULTS WERE REVIEWED BY ME AND CONSIDERED FINDINGS ON RADIOLOGY IF ORDERED. MEDICAL MANAGEMENT AND EXAMINATION INTERPRETATION DISCUSSIONS WERE HAD BY ME WITH OTHER QUALIFIED HEALTHCARE PROFESSIONALS INDICATED FOR THE PATIENT'S CARE. DX & DISP Disposition: Inpatient Decision to Admit Time: 14:36 Departure Impression: Primary Impression: Acute cystitis with hematuria Additional Impressions: Hypokalemia, Hypocalcemia, Diabetes mellitus with hyperglycemia, Uncontrolled hypertension, Systemic inflammatory response syndrome (SIRS) Condition: Stable Referrals: JUANITA ENRIQUEZ MD (PCP) Time of Disposition: 14:36 I have reviewed the case, and I agree with, Diagnosis and Plan CARIN OWENS NP Jan 25, 2025 12:17
[2025-01-25] MEDS: 0.9%NACL 1000ML 1,000 ML IV ONE (12:22)
[2025-01-25 12:44] LABS: IMMATURE GRANULOCYTE ABSOLUTE 0.06 K/uL (0-1); NUCLEATED RED BLOOD CELLS 0.0 % (0.0-0.19); PLATELET COUNT (AUTO) 101 K/uL (130-400); RED BLOOD CELL COUNT(AUTO) 4.81 MIL/uL (4.00-5.50); RED CELL DISTRIBUTION WIDTH 13.5 % (11.0-15.5); WHITE BLOOD COUNT (AUTO) 11.5 K/uL (4.8-10.8)
[2025-01-25 12:45] LABS: RAPID GROUP A STREP negative (NEGATIVE)
[2025-01-25 12:53] LABS: CREATININE 0.6 mg/dL (0.5-1.0); GLOMERULAR FILTR. RATE CALC 98.0 mL/min (>90); GLUCOSE,RANDOM 110.0 mg/dL (70-105); SODIUM SERUM 141.0 mmol/L (136-145); UREA NITROGEN, BLOOD 14.0 mg/dL (7-18)
[2025-01-25 12:55] LABS: COVID19 (SARS ANTIGEN RAPID) PRESUMPTIVE NEGATIVE (NEGATIVE); INFLUENZA TYPE A Negative For Type A (NEGATIVE); INFLUENZA TYPE B Negative For Type B (NEGATIVE)
[2025-01-25 12:58] LABS: CREATINE KINASE, TOTAL 28.0 U/L (21-232)
[2025-01-25 13:06] LABS: APPEARANCE,URINE CLOUDY (CLEAR); GLUCOSE, URINE (UA) NEGATIVE (NEGATIVE); LEUKOCYTE ESTERASE ,URINE 500 Leu/uL (NEGATIVE); NITRATE,URINE 2+ (NEGATIVE); OCCULT BLOOD,URINE SMALL (NEGATIVE)
[2025-01-25] MEDS: OSELTAMIVIR PHOSPHATE 75 MG CAP PO ONE (13:08)
[2025-01-25 13:12] LABS: ADD UA MICROSCOPIC YES
[2025-01-25 13:14] LABS: SQUAMOUS EPITHELIAL CELL,UR RARE /HPF (0-2); WBC CLUMP MOD /HPF (0-1)
--- NOTE | 2025-01-25 13:41 | HMCIMG ---
EXAM: CR Chest, 1 View. CLINICAL HISTORY: SOB/COUGH COMPARISON: 07/03/2024 FINDINGS: LUNGS: There are no pulmonary infiltrates. There is stable linear scarring in the lingula. PLEURAL SPACES: No evidence of pleural effusion or pneumothorax. MEDIASTINUM: The heart is enlarged, but stable. Again noted are sternotomy wires. BONES: No acute osseous abnormality. IMPRESSION: No acute cardiopulmonary pathology is evident. /Points
--- NOTE | 2025-01-25 14:36 | EKG ---
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
[2025-01-25] MEDS ORDERED: LACTULOSE 20 GM/30 ML UDCUP PO PRN (17:30)
[2025-01-25] MEDS ORDERED: NITROGLYCERIN 0.4 MG SL TAB SL PRN (17:30)
[2025-01-25] MEDS ORDERED: BENZOCAINE/MENTH/CETYLPYRD CL 1 EACH LOZENGE MM PRN (17:30)
[2025-01-25] MEDS ORDERED: ARTIFICAL TEARS SOL 15 ML OP PRN (17:30)
[2025-01-25] MEDS ORDERED: LOPERAMIDE HCL 2 MG CAP PO PRN (17:30)
--- NOTE | 2025-01-25 18:31 | HP ---
[facility] HISTORY & PHYSICAL Date Patient Seen: Jan 25, 2025 Time of Visit: 18:30 Supervising Physician: Dr. Cruz Primary Care Physician: Dr. Dk Lewis Outpatient Specialists: Inpatient Consults: PROBLEM LIST: Sepsis, POA (temperature > 38 C, heart rate > 90, respirations > 20, present source of infection) Acute complicated cystitis with hematuria, POA Uncontrolled hypertension, POA Flu-like symptoms s/p sick people exposure, negative influenza Electrolyte derangement (hypokalemia, hypocalcemia) Diabetes mellitus with hyperglycemia Leukocytosis/elevated procalcitonin Thrombocytopenia Acute febrile illness, POA Chronic problem list: DM, HTN, CAD s/p CABG (10/2022), hx pneumonia, sciatica HPI: Mr. Auguste is a 69-year-old female with a history of DM, HTN, CAD s/p CABG (10/2022), hx pneumonia, sciatica who presented to [facility] ED via EMS for evaluation of fevers, chills, flu-like symptoms onset yesterday. The patient also reported nausea and a dry cough. She stated that she went to a family gathering two days ago for people were sick. T-max a 102.5. The patient has not taken anything prior to arrival for pain. The patient denied any vomiting, changes in urination. The patient presented to ED with a blood pressure 192/63, heart rate 117-121 bpm, respirations 22, 97% on room air, 100.0 F. T-max in ED 103.3 F. Chest x-ray: No acute cardiopulmonary pathology. EKG: Sinus tachycardia, heart rate 108 bpm a, LVH with secondary repolarization abnormality. Anterior ST elevations. In ED the patient received Rocephin 2 g IV, Tamiflu, NS 1 L bolus, Tylenol and clonidine. ED provider request patient be admitted to the hospital with a diagnosis of acute cystitis with hematuria, hypokalemia, hypocalcemia, diabetes mellitus with hyperglycemia, uncontrolled hypertension, and SIRS. I assessed the patient at bedside in room number ED 2. The patient's breathing was even, unlabored, in no distress. I informed patient of labs, diagnostics, and plan of care. She verbalized understanding and is in agreement with the plan. Plan and assessment are listed below. PAST MEDICAL HX: see above PAST SURGICAL HX: CABG (10/2022), SOCIAL HISTORY: No tobacco, ETOH, or illicit drug use Coded Allergies: No Known Drug Allergies (Unverified Allergy, Unknown, 02/01/16) REVIEW OF SYSTEMS: 12 point ROS reviewed with patient. Pertinent positives mentioned above. Otherwise negative. PHYSICAL EXAM: GENERAL: Alert, awake oriented x 3 HEENT: EOMI, Sclera non icteric, moist mucosa NECK: Supple, no JVD, trachea midline LUNGS: Clear breath sounds bilaterally. No wheezes HEART: Regular rate and rhythm. Normal S1 and S2, without murmurs ABD: Abdomen soft, nontender. Bowel sounds present EXT: No clubbing cyanosis or edema NEURO: Alert and oriented x3, follows commands. No neuro deficits noted. Vital Signs (last 8hr) Date Time Temp Pulse Resp B/P (MAP) Pulse Ox O2 Delivery O2 Flow Rate FiO2 01/25/25 13:36 192/63 01/25/25 13:10 100.0 117 22 192/69 95 Room Air* 0 21 01/25/25 12:23 103.3 121 22 174/83 97 Room Air* 0 21 01/25/25 12:20 103.3 01/25/25 12:10 103.3 120 22 171/95 94 Room Air LABS: Hematology Labs: Test 01/25/25 12:20 Range/Units White Blood Count 11.5 H 4.8-10.8 K/uL Red Blood Count 4.81 4.00-5.50 MIL/uL Hemoglobin 13.8 12.0-16.0 g/dL Hematocrit 41.0 36-48 % Mean Corpuscular Volume 85.2 79-99 fL Mean Corpuscular Hemoglobin 28.7 27.0-33.0 pg Mean Corpuscular Hemoglobin Concent 33.7 32.0-36.0 g/dL Red Cell Distribution Width 13.5 11.0-15.5 % Platelet Count 101 L 130-400 K/uL Mean Platelet Volume 10.2 7.5-10.5 fL Immature Granulocyte % (Auto) 0.5 0-1 % Neutrophils (%) (Auto) 86.8 H 40.0-77.0 % Lymphocytes (%) (Auto) 5.2 L 21.0-51.0 % Monocytes (%) (Auto) 7.0 3.0-13.0 % Eosinophils (%) (Auto) 0.3 0.0-8.0 % Basophils (%) (Auto) 0.2 0.0-5.0 % Neutrophils # (Auto) 10.0 H 1.8-7.7 K/uL Lymphocytes # (Auto) 0.6 L 1.0-4.8 K/uL Monocytes # (Auto) 0.8 0.1-1.0 K/uL Eosinophils # (Auto) 0.03 0.00-0.70 K/uL Basophils # (Auto) 0.02 0.00-0.20 K/uL Absolute Immature Granulocyte (auto 0.06 0-1 K/uL Nucleated Red Blood Cells 0.0 0.0-0.19 % White Cell Morphology Comment See comments Chemistry Labs: Test 01/25/25 13:28 01/25/25 12:20 Range/Units Troponin I High Sensitivity 35 4-50 ng/L Sodium Level 141 136-145 mmol/L Potassium Level 3.2 L 3.5-5.1 mmol/L Chloride Level 105 101-111 mmol/L Carbon Dioxide Level 27 21-32 mmol/L Blood Urea Nitrogen 14 7-18 mg/dL Creatinine 0.6 0.5-1.0 mg/dL Glomerular Filtration Rate Calc 98 >90 mL/min Random Glucose 110 H 70-105 mg/dL Lactic Acid Level 1.5 0.8-2.5 mmol/L Total Calcium 8.4 L 8.5-10.1 mg/dL Total Creatine Kinase 28 # 21-232 U/L Procalcitonin 0.79 H 0.05-0.5 ng/mL DIAGNOSTICS / RADIOLOGY RESULTS: [ ] PLAN -Admit to Medical floor with continuous telemetry monitoring. -Antibiotic therapy: Rocephin 2 g IV daily. -Repeat flu and COVID swabs. - Monitor for any fevers. Follow WBC, urine cultures, and blood cultures. Antibiotic therapy tailored to culture results. De-escalate antibiotics if possible. -Monitor respiratory status. -Continue oxygen therapy as needed. Titrate oxygen prn to keep Spo2>/+=92%. -Robitussin as needed cough. -PRN medications for: Pain management, fever, hypertension, N/V, constipation. -Glucometer checks AC & HS needed with insulin regular sliding scale coverage as needed. -Blood pressure checks every 4 hours and as needed. -Reconcile home medications once available. - Monitor renal and liver function. -Monitor electrolytes and treat accordingly PRN -AM labs. -GI and DVT prophylaxis -Further plan/orders per hospitalization course. NEURO: Minimize central acting medications as possible. Maintain fall precautions, adequate lighting during the day PULMONARY: Supplemental 02 as needed. Maintain aspiration precautions at all times CARDIOVASCULAR: Follow hemodynamics. Vital signs per facility protocol GI & NUTRITION: Continue with nutritional support. Continue stool softeners and laxatives as needed. KIDNEYS & ELECTROLYTES: Strict monitoring of intake, output and overall fluid balance. Avoid nephrotoxic medications to the extent possible. Medications to be dosed according to renal function. Monitor electrolytes and replace as needed ENDOCRINE: Maintain blood glucose between 100-180 at all times. Hypoglycemia protocol in place INFECTIOUS DISEASE: Trend temperature, WBC and procalcitonin level Follow cultures, deescalate antibiotics as soon as possible. Panculture if new onset fever ONCOLOGY/HEMATOLOGY/COAGULATION: Monitor for s/s of bleeding Monitor hemoglobin, coagulation studies as needed SKIN: Pressure ulcer prevention per facility protocol Specialty mattress ORTHO/REHAB: Continue PT/OT Prophylaxis: Continue GI and DVT prophylaxis Code Status: Full Resuscitation Disposition: TBD ATTESTATION BY PHYSICIAN I attest that I reviewed and discussed the case with the Physician Applique Cutter as well as agree with the Physician Applique Cutter's findings, plans of care, and documentation above. Mikal Collado MD, [employer] Jan 25, 2025 18:31
[2025-01-25 18:48] VITALS: PULSE 71; RESP 18; O2SAT 96
--- NOTE | 2025-01-25 20:11 | NUR ---
RE: MEDICATION RECONCILE SPOKE TO PT SHE STATES SHE DIDNT BRING HER HOME MEDS IN AND AT HOME HER HOME PROVIDER PUTS ALL HER MEDS IN SUN-MON CONTAINER
[2025-01-25] MEDS: FAMOTIDINE 20MG VIAL IV SCH (21:19)
[2025-01-25 22:20] VITALS: BP 198/92; PULSE 87; RESP 20; TEMP 100.4
[2025-01-25] MEDS: LISINOPRIL 20 MG TABLET PO SCH (22:34)
[2025-01-25 22:55] VITALS: O2SAT 99
[2025-01-25 23:05] VITALS: BP 203/78; PULSE 81
[2025-01-25 23:08] VITALS: BP 199/80; TEMP 101.5
--- NOTE | 2025-01-25 23:10 | NUR ---
ADMIT Patient admitted from ER at 2221. Denies shortness of breath or chest pain. Hypertensive 198/92 pulse 87. Administered Lisopril 20 mg Po as per orders. Rechecked blood pressure 203/78 and 199/80 pulse 81. Temp of 100.3 and 101.5. Administered Tylenol PRN for headache and fever. Notified LEOPOLDO Cutler of hypertension and fever. New orders entered. Educated on fall risk precautions and use of call light, verbalized understanding. Call light within reach. Bed alarm on. Plan of care discussed.
[2025-01-25] MEDS: amLODIPine 5 MG TAB PO ONE (23:41)
[2025-01-26] VITALS (16 sets, daily range): BP systolic 145–178; BP diastolic 61–85; PULSE 76–102; RESP 16–20; TEMP 98.3–102; O2SAT 97–100
--- NOTE | 2025-01-26 | NUR ---
HOME MEDS Patient states she has no one to bring in her home medications and does not know what medications she takes due to discarding the bottles and putting pills in medication pill betancourt container. Educated on importance of proper medication reconciliation, verbalized understanding.
[2025-01-26 05:39] LABS: ASPARTATE AMINOTRANSFERASE 16.0 U/L (10-37); CREATININE 0.6 mg/dL (0.5-1.0); GLOMERULAR FILTR. RATE CALC 98.0 mL/min (>90); GLUCOSE,RANDOM 143.0 mg/dL (70-105); SODIUM SERUM 138.0 mmol/L (136-145); TOTAL PROTEIN, SERUM 6.1 g/dL (6.0-8.3); UREA NITROGEN, BLOOD 15.0 mg/dL (7-18)
[2025-01-26] MEDS: ZOSYN 3.375GM +NS 50ML IV SCH (08:04)
[2025-01-26] MEDS: amLODIPine 5 MG TAB PO SCH (08:04)
[2025-01-26] MEDS ORDERED: PoTASSium chl 10% ELIXIR 20MEQ 20 MEQ/15 ML UDCUP PO PRN (09:00)
[2025-01-26] MEDS: PoTASSium chloRIDE 20MEQ ER 20 MEQ ERTAB PO PRN (09:34)
--- NOTE | 2025-01-26 10:56 | NUR ---
DCP: HOME Pt reports that her 28 yro grandson lives with her at her apt. Pt has food stamp assistance of $191, denies issues affording home. pt has provider daily 9-1 and respite 1-7 thru [facility], [place]. At home, pt uses a walker, shower chair and bsc. No HH or HD services. PCP is Mary Lewis and uses [facility] for rx needs. Discussed dc needs, put does not wan to go to SNF, wants to return home with her current services. PCP is Mary Lewis and uses [facility] for rx. CM to follow and assist as needed
[2025-01-26] MEDS ORDERED: PHARMACY COMMUNICATION MISC SCH (11:30)
--- NOTE | 2025-01-26 12:46 | HMCIMG ---
EXAM: CT Abdomen and Pelvis With Intravenous Contrast CLINICAL HISTORY: 69-year-old female with sepsis and bacteremia. TECHNIQUE: Axial computed tomography images of the abdomen and pelvis with intravenous contrast. Dose reduction technique was used including one or more of the following: automated exposure control, adjustment of mA and kV according to patient size, and/or iterative reconstruction. CONTRAST: With intravenous contrast COMPARISON: CT Abdomen and Pelvis 03/24/2014 FINDINGS: LUNG BASES: Atelectasis. LIVER: Mild cirrhotic appearance. GALLBLADDER AND BILE DUCTS: Unremarkable. PANCREAS: Unremarkable. SPLEEN: Mild splenomegaly. ADRENAL GLANDS: Unremarkable. KIDNEYS, URETERS, AND BLADDER: Left side perinephric fat stranding but no evidence for obstructing ureteral calculus. Differential considerations include pyelonephritis of the left kidney in a history of infection, fever, and increased white count. Perinephric fat stranding has significantly increased compared to prior CT Abdomen and Pelvis 03/24/2014. STOMACH AND BOWEL: Diffuse colonic diverticulosis without diverticulitis. APPENDIX: Appendectomy clips seen. PERITONEUM: No free fluid. No free air. LYMPH NODES: No lymphadenopathy. REPRODUCTIVE: Multiple uterine masses suggesting Multifibroid Uterus. Follow up with ultrasound. VASCULATURE: No aortic aneurysm. ABDOMINAL WALL AND SOFT TISSUES: Unremarkable. BONES: Mild degenerative changes of the lumbar spine. No fracture or suspicious osseous abnormality. MULTIPLE CHRONIC FINDINGS SIMILAR TO PRIOR CT ABDOMEN AND PELVIS 03/24/2014 IMPRESSION: 1. Left perinephric fat stranding, significantly increased compared to prior CT, with no obstructing ureteral calculus. Differential considerations include pyelonephritis. 2. Mild cirrhotic appearance of the liver. 3. Mild splenomegaly. 4. Multiple uterine masses suggesting multifibroid uterus. Follow up with ultrasound. /[place]
--- NOTE | 2025-01-26 22:44 | PN ---
[facility] PROGRESS NOTE Date Patient Seen: Jan 26, 2025 Time of Visit: 22:32 Supervising Physician: BARON HOWARD Primary Care Physician: Dr. Dk Lewis Outpatient Specialists: Inpatient Consults: PROBLEM LIST: Sepsis, POA Acute Left sided Pyelonephritis Uncontrolled hypertension, POA Flu-like symptoms s/p sick people exposure, negative influenza Electrolyte derangement (hypokalemia, hypocalcemia) Diabetes mellitus with hyperglycemia Thrombocytopenia Chronic problem list: DM, HTN, CAD s/p CABG (10/2022), hx pneumonia, sciatica INTERVAL HISTORY: Patient was seen and examined by me , she is laying in bed . WBC elevated ,Febrile on Roephin .Ct abdomen and pelvis revealing + pyelonephritis . She denies any abdominal pain, nausea, vomiting . No family at bedside. REVIEW OF SYSTEMS: 12 point ROS reviewed with patient. Pertinent positives mentioned above. Otherwise negative. PHYSICAL EXAM: GENERAL: Alert, awake oriented x 3 HEENT: EOMI, Sclera non icteric, moist mucosa NECK: Supple, no JVD, trachea midline LUNGS: Clear breath sounds bilaterally. No wheezes HEART: Regular rate and rhythm. Normal S1 and S2, without murmurs ABD: Abdomen soft, nontender. Bowel sounds present EXT: No clubbing cyanosis or edema NEURO: Alert and oriented x3, follows commands. No neuro deficits noted. Vital Signs (last 8hr) Date Time Temp Pulse Resp B/P (MAP) Pulse Ox O2 Delivery O2 Flow Rate FiO2 01/26/25 20:00 98.4 80 16 178/80 98 Room Air 01/26/25 19:13 76 18 N/A Room Air 21 01/26/25 19:13 76 18 01/26/25 16:00 98.6 82 18 151/61 96 Room Air LABS: Hematology Labs: Test 01/25/25 12:20 Range/Units White Blood Count 11.5 H 4.8-10.8 K/uL Red Blood Count 4.81 4.00-5.50 MIL/uL Hemoglobin 13.8 12.0-16.0 g/dL Hematocrit 41.0 36-48 % Mean Corpuscular Volume 85.2 79-99 fL Mean Corpuscular Hemoglobin 28.7 27.0-33.0 pg Mean Corpuscular Hemoglobin Concent 33.7 32.0-36.0 g/dL Red Cell Distribution Width 13.5 11.0-15.5 % Platelet Count 101 L 130-400 K/uL Mean Platelet Volume 10.2 7.5-10.5 fL Immature Granulocyte % (Auto) 0.5 0-1 % Neutrophils (%) (Auto) 86.8 H 40.0-77.0 % Lymphocytes (%) (Auto) 5.2 L 21.0-51.0 % Monocytes (%) (Auto) 7.0 3.0-13.0 % Eosinophils (%) (Auto) 0.3 0.0-8.0 % Basophils (%) (Auto) 0.2 0.0-5.0 % Neutrophils # (Auto) 10.0 H 1.8-7.7 K/uL Lymphocytes # (Auto) 0.6 L 1.0-4.8 K/uL Monocytes # (Auto) 0.8 0.1-1.0 K/uL Eosinophils # (Auto) 0.03 0.00-0.70 K/uL Basophils # (Auto) 0.02 0.00-0.20 K/uL Absolute Immature Granulocyte (auto 0.06 0-1 K/uL Nucleated Red Blood Cells 0.0 0.0-0.19 % White Cell Morphology Comment See comments Chemistry Labs: Test 01/26/25 19:20 01/26/25 04:48 01/25/25 13:28 01/25/25 12:20 Range/Units Whole Blood Glucose 195 H 70-110 MG/DL Sodium Level 138 136-145 mmol/L Potassium Level 3.2 L 3.5-5.1 mmol/L Chloride Level 104 101-111 mmol/L Carbon Dioxide Level 24 21-32 mmol/L Blood Urea Nitrogen 15 7-18 mg/dL Creatinine 0.6 0.5-1.0 mg/dL Glomerular Filtration Rate Calc 98 >90 mL/min Random Glucose 143 H 70-105 mg/dL Total Calcium 8.0 L 8.5-10.1 mg/dL Total Bilirubin 0.7 0.2-1.0 mg/dL Aspartate Amino Transf (AST/SGOT) 16 10-37 U/L Alanine Aminotransferase (ALT/SGPT) 13 12-78 U/L Alkaline Phosphatase 70 50-136 U/L Total Protein 6.1 6.0-8.3 g/dL Albumin 2.6 L 3.5-5.0 g/dL Troponin I High Sensitivity 35 4-50 ng/L Hemoglobin A1c 7.8 H 4.0-6.0 % Estimated Average Glucose (eAG) 177 H 70-126 mg/dL Lactic Acid Level 1.5 0.8-2.5 mmol/L Total Creatine Kinase 28 # 21-232 U/L Procalcitonin 0.79 H 0.05-0.5 ng/mL DIAGNOSTICS / RADIOLOGY RESULTS: [ ] PLAN -Broaden antibiotic therapy. - Monitor for any fevers. Follow WBC, urine cultures, and blood cultures. Antibiotic therapy tailored to culture results. De-escalate antibiotics if po ssible. -Monitor respiratory status. -Continue oxygen therapy as needed. Titrate oxygen prn to keep Spo2>/+=92%. -Robitussin as needed cough. -PRN medications for: Pain management, fever, hypertension, N/V, constipation. -Glucometer checks AC & HS needed with insulin regular sliding scale coverage as needed. -Blood pressure checks every 4 hours and as needed. -Reconcile home medications once available. - Monitor renal and liver function. -Monitor electrolytes and treat accordingly PRN -AM labs. -GI and DVT prophylaxis -Further plan/orders per hospitalization course. NEURO: Minimize central acting medications as possible. Maintain fall precautions, adequate lighting during the day PULMONARY: Supplemental 02 as needed. Maintain aspiration precautions at all times CARDIOVASCULAR: Follow hemodynamics. Vital signs per facility protocol GI & NUTRITION: Continue with nutritional support. Continue stool softeners and laxatives as needed. KIDNEYS & ELECTROLYTES: Strict monitoring of intake, output and overall fluid balance. Avoid nephrotoxic medications to the extent possible. Medications to be dosed according to renal function. Monitor electrolytes and replace as needed ENDOCRINE: Maintain blood glucose between 100-180 at all times. Hypoglycemia protocol in place INFECTIOUS DISEASE: Trend temperature, WBC and procalcitonin level Follow cultures, deescalate antibiotics as soon as possible. Panculture if new onset fever ONCOLOGY/HEMATOLOGY/COAGULATION: Monitor for s/s of bleeding Monitor hemoglobin, coagulation studies as needed SKIN: Pressure ulcer prevention per facility protocol Specialty mattress ORTHO/REHAB: Continue PT/OT Prophylaxis: Continue GI and DVT prophylaxis Code Status: Full Resuscitation Disposition: DANICA GEORGE Jan 26, 2025 22:44
[2025-01-27 03:15] VITALS: BP 164/79; PULSE 81; RESP 20; TEMP 98
[2025-01-27 04:20] LABS: IMMATURE GRANULOCYTE ABSOLUTE 0.02 K/uL (0-1); NUCLEATED RED BLOOD CELLS 0.0 % (0.0-0.19); PLATELET COUNT (AUTO) 84 K/uL (130-400); RED BLOOD CELL COUNT(AUTO) 4.38 MIL/uL (4.00-5.50); RED CELL DISTRIBUTION WIDTH 13.7 % (11.0-15.5); WHITE BLOOD COUNT (AUTO) 5.9 K/uL (4.8-10.8)
[2025-01-27 04:33] LABS: ASPARTATE AMINOTRANSFERASE 15.0 U/L (10-37); CREATININE 0.5 mg/dL (0.5-1.0); GLOMERULAR FILTR. RATE CALC 102.0 mL/min (>90); GLUCOSE,RANDOM 160.0 mg/dL (70-105); SODIUM SERUM 141.0 mmol/L (136-145); TOTAL PROTEIN, SERUM 6.2 g/dL (6.0-8.3); UREA NITROGEN, BLOOD 11.0 mg/dL (7-18)
[2025-01-27 06:42] VITALS: PULSE 92; RESP 18
[2025-01-27 08:00] VITALS: BP 146/74; PULSE 82; PULSE 95; RESP 18; TEMP 98.6; O2SAT 97; O2SAT 98
[2025-01-27 11:20] VITALS: PULSE 91; RESP 18
[2025-01-27 12:00] VITALS: BP 160/117; PULSE 93; RESP 18; TEMP 98
[2025-01-27] MEDS ORDERED: LEVO-70 PO (13:01)
--- NOTE | 2025-01-27 13:27 | DS ---
[facility] DISCHARGE SUMMARY Date Patient Seen: Jan 27, 2025 Time of Visit: 13:22 Supervising Physician: Damian Granados Primary Care Physician: Dr. Dk Lewis Outpatient Specialists: Inpatient Consults: PROBLEM LIST: Sepsis, POA resolved Acute Left sided Pyelonephritis (+) E-coli Uncontrolled hypertension, POA Flu-like symptoms s/p sick people exposure, negative influenza Electrolyte derangement (hypokalemia, hypocalcemia) Diabetes mellitus with hyperglycemia Thrombocytopenia Chronic problem list: DM, HTN, CAD s/p CABG (10/2022), hx pneumonia, sciatica HOSPITAL COURSE: HPI (per admitting provider) Mrs. Auguste is a 69-year-old female with a history of DM, HTN, CAD s/p CABG (10/2022), hx pneumonia, sciatica who presented to [facility] via EMS for evaluation of fevers, chills, flu-like symptoms onset yesterday. The patient also reported nausea and a dry cough. She stated that she went to a family gathering two days ago for people were sick. T-max a 102.5. The patient has not taken anything prior to arrival for pain. The patient denied any vomiting, changes in urination. The patient presented to ED with a blood pressure 192/63, heart rate 117-121 bpm, respirations 22, 97% on room air, 100.0 F. T-max in ED 103.3 F. Chest x-ray: No acute cardiopulmonary pathology. EKG: Sinus tachycardia, heart rate 108 bpm a, LVH with secondary repolarization abnormality. Anterior ST elevations. In ED the patient received Rocephin 2 g IV, Tamiflu, NS 1 L bolus, Tylenol and clonidine. ED provider request patient be admitted to the hospital with a diagnosis of acute cystitis with hematuria, hypokalemia, hypocalcemia, diabetes mellitus with hyperglycemia, uncontrolled hypertension, and SIRS. Mr. Auguste is a 69-year-old female with a history of DM, HTN, CAD s/p CABG (10/2022), hx pneumonia, sciatica who presented to [facility] via EMS for evaluation of fevers, chills, flu-like symptoms onset yesterday. The patient also reported nausea and a dry cough. She stated that she went to a family gathering two days ago for people were sick. T-max a 102.5. The patient has not taken anything prior to arrival for pain. The patient denied any vomiting, changes in urination. The patient presented to ED with a blood pressure 192/63, heart rate 117-121 bpm, respirations 22, 97% on room air, 100.0 F. T-max in ED 103.3 F. Chest x-ray: No acute cardiopulmonary pathology. EKG: Sinus tachycardia, heart rate 108 bpm a, LVH with secondary repolarization abnormality. Anterior ST elevations. In ED the patient received Rocephin 2 g IV, Tamiflu, NS 1 L bolus, Tylenol and clonidine. ED provider request patient be admitted to the hospital with a diagnosis of a cute cystitis with hematuria, hypokalemia, hypocalcemia, diabetes mellitus with hyperglycemia, uncontrolled hypertension, and SIRS. Today patient is seen sitting up in bed without acute distress. Patient is accompanied by her daughter. The patient reports some feeling back to baseline. Patient treated with broad-spectrum antibiotics and responded very well. Patient's urine culture was positive for E coli which is pansensitive. Patient has been advised to continue oral antibiotics as prescribed. Patient has been advised to follow up with PCP in the next 1-2 days. Patient verbalized understanding. Vital signs are stable. Labs are within normal limits. Medication reconciliation has been completed. New prescriptions have been sent to patient's pharmacy. Education regarding current diagnosis been provided to the patient. All questions been answered. The patient to be discharged home. The patient was treated for the following problems: ACTIVE PROBLEM LIST FOR THE HOSPITALIZATION: Sepsis, POA resolved Acute Left sided Pyelonephritis (+) E-coli Uncontrolled hypertension, POA Flu-like symptoms s/p sick people exposure, negative influenza Electrolyte derangement (hypokalemia, hypocalcemia) Diabetes mellitus with hyperglycemia Thrombocytopenia Chronic problem list: DM, HTN, CAD s/p CABG (10/2022), hx pneumonia, sciatica CHRONIC PROBLEMS: continue previous management per PCP unless otherwise indicated [employer]ISTANT FINDINGS/RECOMMENDATIONS: [ ] PROCEDURES: as mentioned above DISCHARGE MEDICATIONS: See DC med rec Pt hemodynamically stable and afebrile at time of discharge. PCP notified of patients admission, hospital course and discharge. PHYSICAL EXAM: GENERAL: Alert, awake oriented x 3 HEENT: EOMI, Sclera non icteric, moist mucosa NECK: Supple, no JVD, trachea midline LUNGS: Clear breath sounds bilaterally. No wheezes HEART: Regular rate and rhythm. Normal S1 and S2, without murmurs ABD: Abdomen soft, nontender. Bowel sounds present EXT: No clubbing cyanosis or edema NEURO: Alert and oriented x3, follows commands. No neuro deficits noted. FOLLOW-UP: Follow-up with PCP in 2-3 days RECOMMENDATIONS: See Discharge Instructions This case was seen and discussed with my supervising physician. More than 30 minutes spent on discharge process, including evaluation of the patient, discussion with nursing staff, medication reconciliation and follow-up appointments ATTESTATION BY PHYSICIAN I have seen and examined the patient. I reviewed the documentation, medical decision making, and treatment plan as noted by the mid-level provider above. I agree with the findings and plan of care. Zenaida Granados MD, ECTOR N JUDIE Jan 27, 2025 13:27
--- NOTE | 2025-01-27 15:20 | NUR ---
DISCHARGE PT sitting in bed w/ eyes open A&Ox4 denies pain or discomfort, Son @ bedside. IVs removed intact w/o complications. Discharge instructions given to PT & son verbally and written, both verbally acknowledged understanding. PT escorted to POV via WC by NURSE MIDWIFE w/o complications.
== END 2025-01-27 15:20 | disposition home or self-care (01) | DRG 872 ==
LOC: EDH 12:09 → EDHIP 14:39 → 3DH 15:15 → EDHIP 15:16 → 4AH 21:58
PROVIDERS: ADMIT Internal Medicine Critical Care Medicine; ATTEND Internal Medicine Critical Care Medicine
DX: A41.9 Sepsis, unspecified organism (principal); N30.01 Acute cystitis with hematuria; N10 Acute pyelonephritis; E11.65 Type 2 diabetes mellitus with hyperglycemia; Z20.822 Contact with and (suspected) exposure to COVID-19; E83.51 Hypocalcemia; B96.20 Unspecified Escherichia coli [E. coli] as the cause of diseases classified elsewhere; D69.6 Thrombocytopenia, unspecified; E87.6 Hypokalemia; I10 Essential (primary) hypertension; I25.10 Atherosclerotic heart disease of native coronary artery without angina pectoris; Z95.1 Presence of aortocoronary bypass graft; Z79.899 Other long term (current) drug therapy
CPT/HCPCS: 36415; 71045; 74176; 80048; 80053; 81001; 82550; 82948; 83036; 83605; 83735; 84145; 84484; 85025; 87040; 87086; 87186; 87426; 87804; 87880; 93005; 94640; 94664; 99285; G0378; J0360; J0696; J2543; J3490; J7030